=== PATIENT | male | born 1990 | race Caucasian/White ===

== ENCOUNTER 2020-08-24 18:03 | Emergency (ER) | payer SELFPAY ==
[2020-08-24 18:07] VITALS: BP 165/105; PULSE 95; RESP 18; TEMP 36.4; O2SAT 100; BMI 33.3
--- NOTE | 2020-08-24 18:11 | ECG_ITS ---
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
--- NOTE | 2020-08-24 18:11 | XR_ITS ---
WS: [id number] Portable AP upright chest, 08/24/2020 Clinical Data: cp Comparison: Portable chest, 12/29/2017. Findings: No nodules, masses or effusions are seen. The heart is normal. The pulmonary vascularity is not increased. No pneumonia or pneumothorax is seen. Monitor leads are on the chest wall. XR/XR chest 1V portable [id number] Impression: Negative chest.
--- NOTE | 2020-08-24 18:12 | ED_ITS ---
HPI - Chest Pain General: Chief Complaint: Chest Pain Stated Complaint: Chest Pain Time Seen by Provider: 08/24/20 18:07 Source: patient Mode of arrival: ambulatory Limitations: no limitations History of Present Illness: HPI narrative: 30-year-old male who states that he has been having intermittent palpitations for weeks. He states he drank 2-3 energy drinks today and started having palpitations and was reading online and is concerned that he was in atrial fib. He states he has had a burning pain in the center of his chest as well. He denies any worsening or improving factors. He denies any vomiting. He has had some slight shortness of breath. Denies any cough. MD complaint: chest pain Onset (ago): day(s) Associated symptoms: Deny abdominal pain, dyspnea, fever(s), nausea or vomiting Review of Systems 2 Const: Denies: fever(s), chills, body aches or change in appetite Eyes: Denies: blurry vision or eye discomfort ENMT: Denies: throat pain or dental pain Card: Reports: chest pain Resp: Denies: dyspnea GI: Denies: abdominal pain, nausea, vomiting or diarrhea : Denies: dysuria Musc: Denies: neck pain or back pain Skin/Breast: Denies: rash Neuro: Denies: headache(s) Psych: Denies: depression Bernabe/Lymph: Denies: easy bruising All/Imm: Denies: urticaria Physical Exam Const: COMMON NORMALS: no acute distress, patient oriented x3 and healthy appearing HENMT: COMMON NORMALS: normocephalic and atraumatic HEAD & SCALP: normocephalic and atraumatic Eye: COMMON NORMALS: Equal, round and reactive pupils present and EOMs intact bilaterally PUPIL: Yes Equal, round and reactive pupils present Neck/C-Spine: COMMON NORMALS: full ROM and supple Chest: COMMONS NORMALS: normal inspection of the chest and normal palpation of entire chest wall Resp: COMMON NORMALS: normal respiratory effort, No retractions, No use of accessory muscles and clear to auscultation bilaterally AUSCULTATION: clear to auscultation bilaterally Cardio: COMMON NORMALS: regular rate, regular rhythm and No murmurs present (Cardio) RATE: regular rate RHYTHM: regular rhythm GI: COMMON NORMALS: Normal to inspection, nondistended, normoactive bowel sounds present, Soft to palpation, non-tender and no masses PALPATION: Yes Soft to palpation Extremity: COMMON NORMALS: normal to inspection and full ROM Neuro: COMMON NORMALS: patient oriented x3, moves all extremities and no focal motor deficits Psych: COMMON NORMALS: mental status grossly normal, Normal thought process present and cooperative THOUGHT PROCESS: Normal thought process present Skin: COMMON NORMALS: no rashes or lesions noted and no wounds GENERAL SKIN EXAM: no rashes or lesions noted Course Vital Signs: Vital signs: Vital Signs Temperature 97.6 F 08/24/20 18:07 Pulse Rate 102 H 08/24/20 20:47 Respiratory Rate 16 08/24/20 20:47 Blood Pressure 142/92 08/24/20 20:47 Pulse Oximetry 99 08/24/20 20:47 MDM - Chest Pain MDM Narrative: Medical decision making narrative: Nicholas presents with chest pain palpitations atypical in nature. His palpitations likely due to energy drinks. He is young and healthy and troponin and EKG and D-dimer all negative. He has no signs of major cardiac cause. He is stable for discharge and is to follow-up his PCP and return if worsening. Lab Data: Labs: Lab Results 08/24/20 08/24/20 08/24/20 Range/Units 19:10 19:10 19:10 WBC 10.8 H (4.0-10.0) 10^3/ uL RBC 4.13 (4.1-5.3) 10^6/u L Hgb 13.7 (11.7-16.6) g/dL Hct 40.0 L (42.0-52.0) % MCV 96.9 H (80-94) fL MCH 33.2 (28.0-34.0) pg MCHC 34.3 (30.0-36.0) g/dL RDW 13.1 (12.1-15.1) % Plt Count 178 (130-400) 10^3/c mm MPV 10.6 H (7.4-10.4) fL Neut % (Auto) 74.6 % Lymph % (Auto) 17.3 % Dukes % (Auto) 5.4 % Eos % (Auto) 2.0 % Baso % (Auto) 0.4 % Neut # (Auto) 8.04 H (1.8-7.7) 10^3/u L Lymph # (Auto) 1.9 (0.8-4.8) 10^3/u L [place]ukes # (Auto) 0.6 (0.2-0.9) 10^3/u L Eos # (Auto) 0.2 (0.0-0.8) 10^3/u L Baso # (Auto) 0.0 (0.0-0.1) 10^3/u L Nucleated RBC % (a uto) 0 % Nucleated RBCs # 0.0 /100WBC D-Dimer <= 0.27 (0-0.59) ug/mIFE U Sodium 140 (136-145) mmol/L Potassium 4.0 (3.5-5.1) mmol/L Chloride 105 (98-107) mmol/L Carbon Dioxide 27 (22-29) mmol/L Anion Gap 12.0 (5-19) BUN 9 (6-20) mg/dL Creatinine 0.8 (0.7-1.2) mg/dL GFR Calculation 112.8 (90-130) mL/min Glucose 88 (65-115) mg/dL Calculated Osmolal ity 288 (285-295) mOsm/k g Calcium 9.1 (8.5-10.5) mg/dL Total Bilirubin 0.9 (0.15-1.2) mg/dL AST 26 (0-40) U/L ALT 48 H (0-41) U/L Alkaline Phosphata se 97 (40-130) IU/L Troponin T Baselin e (0-15) ng/L Total Protein 7.0 (6.6-8.7) g/dL Albumin 4.3 (3.5-5.2) g/dL Globulin 2.7 (1.3-4.6) g/dL 08/24/20 Range/Units 19:10 WBC (4.0-10.0) 10^3/ uL RBC (4.1-5.3) 10^6/u L Hgb (11.7-16.6) g/dL Hct (42.0-52.0) % MCV (80-94) fL MCH (28.0-34.0) pg MCHC (30.0-36.0) g/dL RDW (12.1-15.1) % Plt Count (130-400) 10^3/c mm MPV (7.4-10.4) fL Neut % (Auto) % Lymph % (Auto) % Dukes % (Auto) % Eos % (Auto) % Baso % (Auto) % Neut # (Auto) (1.8-7.7) 10^3/u L Lymph # (Auto) (0.8-4.8) 10^3/u L Dukes # (Auto) (0.2-0.9) 10^3/u L Eos # (Auto) (0.0-0.8) 10^3/u L Baso # (Auto) (0.0-0.1) 10^3/u L Nucleated RBC % (a uto) % Nucleated RBCs # /100WBC D-Dimer (0-0.59) ug/mIFE U Sodium (136-145) mmol/L Potassium (3.5-5.1) mmol/L Chloride (98-107) mmol/L Carbon Dioxide (22-29) mmol/L Anion Gap (5-19) BUN (6-20) mg/dL Creatinine (0.7-1.2) mg/dL GFR Calculation (90-130) mL/min Glucose (65-115) mg/dL Calculated Osmolal ity (285-295) mOsm/k g Calcium (8.5-10.5) mg/dL Total Bilirubin (0.15-1.2) mg/dL AST (0-40) U/L ALT (0-41) U/L Alkaline Phosphata se (40-130) IU/L Troponin T Baselin e 6 (0-15) ng/L Total Protein (6.6-8.7) g/dL Albumin (3.5-5.2) g/dL Globulin (1.3-4.6) g/dL Imaging Data^: CXR: Attestation: I personally reviewed and interpreted this imaging study as follows: My impression: no acute abnormality EKG Data^: EKG 1: Attestation: I personally reviewed and interpreted this EKG as follows: EKG interpretation date: 08/24/20 EKG interpretation time: 18:12 Interpretation: nsr hr [address] or t wave abnormalities qrs 89 qtc 401 EKG 2: Attestation: I personally reviewed and interpreted this EKG as follows: EKG interpretation date: 08/24/20 EKG interpretation time: 20:15 Interpretation: nsr hr [address] or t wave abnormalities qrs 85 qtc 413 Discharge Plan Discharge Patient Disposition: Home Clinical Impression: Palpitations, Chest pain Condition: Stable Prescriptions: No Action iron 325 mg (65 mg iron) Tablet 325 mg PO DAILY RF: 0 Fish Oil 1 cap PO DAILY RF: 0 Otc Metabolism Health 1 cap PO DAILY RF: 0 Otc Mood Stabilizer 1 cap PO DAILY RF: 0 multivitamin Tablet 1 tab PO DAILY RF: 0 Discharge Orders: Discharge ED (Routine); Ordered 08/24/20 Ordered By: Chadd Reyes Referrals: DARIO Jade, CHILD PROTECTIVE SERVICES SPECIALIST [Primary Care Provider] - 1-3 days Discharge Diet: Advance as tolerated Discharge Activity: Resume usual activity Patient Instructions: Chest Pain (ED), Palpitations (ED) Coding Level of Care Code ED Health Safety And Environment Manager for Chg Fwd Exam Comprehensive
[2020-08-24] MEDS: LORazepam 2 mg/mL INJ 1 mL 1 MG IVP (19:04)
[2020-08-24 19:14] LABS: Basophils % 0.4 %; Eosinophils # 0.2 10^3/uL (0.0-0.8); Hemoglobin 13.7 g/dL (11.7-16.6); Lymphocytes # 1.9 10^3/uL (0.8-4.8); Lymphocytes % 17.3 %; Mean Corpuscular HGB Conc 34.3 g/dL (30.0-36.0); Mean Corpuscular Hemoglobin 33.2 pg (28.0-34.0); Mean Corpuscular Volume 96.9 fL (80-94); Mean Platelet Volume 10.6 fL (7.4-10.4); Monocytes # 0.6 10^3/uL (0.2-0.9); Monocytes % 5.4 %; Neutrophils # 8.04 10^3/uL (1.8-7.7); Neutrophils % 74.6 %; Nucleated Red Blood Cells % 0 %; Platelet Count 178 10^3/cmm (130-400); Red Blood Count 4.13 10^6/uL (4.1-5.3); Red Cell Distribution Width 13.1 % (12.1-15.1); White Blood Count 10.8 10^3/uL (4.0-10.0)
[2020-08-24 19:39] LABS: Alanine Aminotransferase 48 U/L (0-41); Albumin Level 4.3 g/dL (3.5-5.2); Alkaline Phosphatase 97 IU/L (40-130); Aspartate Amino Transferase 26 U/L (0-40); Blood Urea Nitrogen 9 mg/dL (6-20); Calcium 9.1 mg/dL (8.5-10.5); Carbon Dioxide 27 mmol/L (22-29); Chloride 105 mmol/L (98-107); Globulin 2.7 g/dL (1.3-4.6); Glomerular Filtration Rate 112.8 mL/min (90-130); Glucose 88 mg/dL (65-115); Osmolality Calculated 288 mOsm/kg (285-295); Sodium 140 mmol/L (136-145); Total Bilirubin 0.9 mg/dL (0.15-1.2)
[2020-08-24 19:40] VITALS: BP 133/98; PULSE 100; RESP 16; O2SAT 98
[2020-08-24 19:40] LABS: Troponin(5th) Baseline 6 ng/L (0-15)
--- NOTE | 2020-08-24 20:11 | ECG_ITS ---
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
[2020-08-24] MEDS: sodium chloride 0.9% 1,000 ML 999 ML IV (20:23)
[2020-08-24] MEDS: ketorolac 30 mg/mL INJ IVP (20:23)
[2020-08-24 20:47] VITALS: BP 142/92; PULSE 102; RESP 16; O2SAT 99
[2020-08-24 20:56] LABS: D Dimer <= 0.27 ug/mIFEU (0-0.59)
== END 2020-08-24 21:11 | disposition home or self-care (01) ==
PROVIDERS: Emergency Provider Emergency Medicine; PCP Nurse Practitioner Family
DX: R07.9 Chest pain, unspecified (principal); R00.2 Palpitations
CPT/HCPCS: 71045; 80053; 84484; 85025; 85378; 93005; 96361; 96374; 96375; 99284; J1885; J2060; J7030

== ENCOUNTER 2024-12-14 09:49 | Inpatient (IN) | payer SELFPAY ==
[2024-12-14] VITALS (83 sets, daily range): BP systolic 100–176; BP diastolic 58–130; PULSE 103–131; RESP 12–30; TEMP 36.5–36.8; O2SAT 89–100
--- NOTE | 2024-12-14 09:50 | XRR_ITS ---
PROCEDURE INFORMATION: Exam: XR Chest Exam date and time: 12/14/2024 10:30 AM Age: 34 years old Clinical indication: Pain; Angina pectoris; Additional info: Chest pain TECHNIQUE: Imaging protocol: Radiologic exam of the chest. Views: 1 view. COMPARISON: CR XR chest 1V portable [id number] 08/24/2020 6:33 PM FINDINGS: Lungs: Unremarkable. No consolidation. Pleural spaces: Unremarkable. No pleural effusion. No pneumothorax. Heart/Mediastinum: Unremarkable. No cardiomegaly. Bones/joints: Unremarkable. XR/XR chest 1V portable [id number] IMPRESSION: No acute findings.
--- NOTE | 2024-12-14 09:50 | ECG_ITS ---
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 Measurements Intervals [place] Rate: 132 P: 68 RI: 131 QRS: 58 QRSD: 81 T: 58 QT: 315 QTc: 467 Interpretive Statements SINUS TACHYCARDIA NONSPECIFIC T-WAVE ABNORMALITY Compared to ECG 08/24/2020 20:15:27 T-wave abnormality now present Sinus rhythm no longer present Electronically Signed On 12-16-2024 09:33:41 CDT by Rico Petit M.D. [id number]
--- NOTE | 2024-12-14 10:08 | ED_ITS ---
HPI - Chest Pain 2 General: Chief Complaint: Chest Pain Stated Complaint: SOb, chest pain, tingling in fingers and toes Time Seen by Provider: 12/14/24 09:50 Source: patient Mode of arrival: ambulatory Limitations: no limitations History of Present Illness: Patient is a 34-year-old male presents to ED today for a complaint of dizziness worse upon standing and shortness of breath. Patient states symptoms have been present over the past several weeks but have significantly worsened over the past few days. He has had intermittent episodes of chest pain. Patient states he does smoke and drink alcohol daily. Reports approximately 3 alcoholic drinks nightly-sometimes more. 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 He arrives tachycardic in the 130s. MD complaint: chest pain and other (sob, dizziness) Onset (ago): week(s) Timing of current episode: episodic Pain location: substernal Relieving factors: rest Exacerbating factors: other (standing, walking) Associated symptoms: Reports no associated symptoms and dyspnea; Deny abdominal pain, fever(s), nausea, palpitations, syncope or vomiting Treatment prior to arrival: none Risk Factors: Coronary artery disease risk factors: smoking history Thoracic aortic dissection risk factors: none Related Data Home Medications ?Medication ?Instructions ?Recorded ?Confirmed No Known Home Medications 12/14/2407/10 Allergies Allergy/AdvReac Type Severity Reaction Status Date / Time No Known Allergies Allergy Verified 10/12/20 11:25 Review of Systems 2 Const: Denies: fever(s), chills, body aches, fatigue or malaise Eyes: Denies: change in vision or blurry vision Card: Reports: chest pain, lightheadedness and dyspnea on exertion; Denies: palpitations, irregular heart rhythm, edema, swelling of feet/ankles, syncope, pre-syncope, orthopnea, leg pain with exertion or acrocyanosis Resp: Reports: dyspnea; Denies: productive cough, pain on inspiration or chest congestion GI: Denies: abdominal pain, nausea, vomiting, heartburn or diarrhea : Denies: flank pain, difficulty urinating, dysuria, urinary frequency or urinary urgency Musc: Denies: neck pain, back pain, extremity pain, extremity swelling, joint pain, joint swelling or joint redness Skin/Breast: Denies: rash Neuro: Reports: dizziness; Denies: headache(s), numbness in extremities, weakness in extremities, sensory changes, confusion, behavioral changes, Slurred speech present, difficulty communicating thoughts or seizure-like activity PFSH ED 2 PFSH: Social History Smoking and tobacco/nicotine status: current every day tobacco/nicotine user cigarettes Packs smoked per day: 1 Years cigarettes smoked: 12 Quit status (tobacco/nicotine): has tried quititng Number of times tried to quit tobacco: 3 Second hand smoke exposure: No Physical Exam 2 Const: COMMON NORMALS: no acute distress, patient oriented x3, no limitations and alert GENERAL APPEARANCE: cooperative ORIENTATION/CONSCIOUSNESS: Yes awake, Yes oriented to person, Yes oriented to place and Yes oriented to time OTHER: pale appearing HENMT: COMMON NORMALS: normocephalic and atraumatic HEAD & SCALP: normal to inspection, normocephalic and atraumatic Neck/C-Spine: COMMON NORMALS: no lymphadenopathy GENERAL: Yes normal visual inspection Resp: COMMON NORMALS: normal respiratory effort and clear to auscultation bilaterally AUSCULTATION: clear to auscultation bilaterally Cardio: COMMON NORMALS: regular rhythm RATE: tachycardic RHYTHM: regular rhythm GI: COMMON NORMALS: Normal to inspection, nondistended, normoactive bowel sounds present, Soft to palpation, non-tender, No hepatosplenomegaly present and no masses PALPATION: Yes Soft to palpation and Yes No hepatosplenomegaly present RECTAL EXAM: Yes heme negative stool (probably not enough sample for adequate testing) : COMMON NORMALS: Yes no CVA tenderness BLADDER/KIDNEY EXAM: Yes no CVA tenderness Back/Pelvis: COMMON NORMALS: no CVA tenderness, thoracic and lumbar spine normal to inspection and no thoracic nor lumbar tenderness Extremity: COMMON NORMALS: no clubbing, cyanosis or edema, no calf tenderness and no pedal edema GENERAL: Yes normal exam except as noted Neuro: COMMON NORMALS: patient oriented x3, moves all extremities, no focal motor deficits and no sensory deficits noted SENSORIUM/ORIENTATION: Yes alert, Yes oriented to person, Yes oriented to place and Yes oriented to time Skin: NARRATIVE SKIN EXAM: pale Course 2 Vital Signs: Vital signs: Vital Signs Temperature 98.1 F 12/14/24 09:57 Pulse Rate 124 H 12/14/24 12:00 Respiratory Rate 17 12/14/24 10:20 Blood Pressure 122/72 12/14/24 12:00 Pulse Oximetry 97 12/14/24 12:00 Oxygen Delivery Me thod Room Air 12/14/24 12:00 MDM - Chest Pain Medical Decision Making Patient is a 34-year-old male here with a chief complaint of dizziness, lightheadedness, shortness of breath, and elevated heart rate. Symptoms progressively worsening over the past several days. Worse with positional changes. He was found to be significantly anemic with a hemoglobin of 6.7. He is a daily heavy alcohol user. He has not noted any episodes of hematemesis or black or tarry stools. Hemoccult here was negative but adequate sample was not obtained. Presumed GI bleed at this time based on his history. CT scan of his chest/abdomen/pelvis showing no esophageal varices. He does have scattered mild lymphadenopathy. Plan will be to admit to hospitalist, Dr. Santos. Dr. Valderrama will consult for EGD/colonoscopy. Will admit to ICU per hospitalist request. Will transfuse 2 units PRBCs as he is tachycardic and symptomatic. Medical Records I reviewed the patient's medical records. Lab Data I reviewed the patient's lab results. 12/14/24 10:15 12/14/24 10:15 Radiology Impressions Chest X-Ray 12/14/24 09:50 IMPRESSION: No acute findings. Chest/Abdomen/Pelvis CT 12/14/24 11:29 IMPRESSION: 1. No esophageal varices identified. 2. Mild left mediastinal lymphadenopathy. 3. No other acute thoracic findings. 4. Additional details as above. IMPRESSION: 1. Mild chun hepatis, periceliac, and right iliac lymphadenopathy. 2. Mild splenomegaly. 3. No other acute abdominal or pelvic findings. 4. Additional details as above. Laboratory Results WBC 6.32 10^3/uL (3.29-11.43) 12/14/24 10:15 RBC 1.65 10^6/uL (3.85-5.65) L 12/14/24 10:15 Hgb 6.70 g/dL (11.27-16.99) L 12/14/24 10:15 Hct 18.6 % (37-53) L* 12/14/24 10:15 MCV 112.7 fl (82-101) H 12/14/24 10:15 MCH 40.6 pg (27-33) H 12/14/24 10:15 MCHC 36.0 g/dL (30-55) 12/14/24 10:15 RDW 15.3 % (12.1-15.1) H 12/14/24 10:15 Plt Count 165 10^3/cmm (157-399) 12/14/24 10:15 MPV 10.0 fL (7.4-10.4) 12/14/24 10:15 Neut % (Auto) 72.3 % 12/14/24 10:15 Lymph % (Auto) 20.1 % 12/14/24 10:15 [place] % (Auto) 3.5 % 12/14/24 10:15 Eos % (Auto) 3.2 % 12/14/24 10:15 Baso % (Auto) 0.3 % 12/14/24 10:15 Neut # (Auto) 4.57 10^3/uL (1.8-7.7) 12/14/24 10:15 Lymph # (Auto) 1.3 10^3/uL (0.8-4.8) 12/14/24 10:15 [place] # (Auto) 0.2 10^3/uL (0.2-0.9) 12/14/24 10:15 Eos # (Auto) 0.2 10^3/uL (0.0-0.8) 12/14/24 10:15 Baso # (Auto) 0.0 10^3/uL (0.0-0.1) 12/14/24 10:15 Nucleated RBC % (auto) 0 % 12/14/24 10:15 Nucleated RBCs # 0.0 /100WBC 12/14/24 10:15 D-Dimer 0.89 ug/mLFEU (0-0.59) H 12/14/24 10:15 Sodium 133 mmol/L (136-145) L 12/14/24 10:15 Potassium 3.7 mmol/L (3.5-5.1) 12/14/24 10:15 Chloride 95 mmol/L (98-107) L 12/14/24 10:15 Carbon Dioxide 25 mmol/L (22-29) 12/14/24 10:15 Anion Gap 16.7 (5-19) 12/14/24 10:15 BUN 7 mg/dL (6-20) 12/14/24 10:15 Creatinine 0.7 mg/dL (0.7-1.2) 12/14/24 10:15 GFR Calculation 128.3 mL/min (90-130) 12/14/24 10:15 Glucose 109 mg/dL (65-115) 12/14/24 10:15 Calculated Osmolality 275 mOsm/kg (285-295) L 12/14/24 10:15 Lactic Acid 2.6 mmol/L (0.5-2.2) H 12/14/24 10:15 Calcium 9.0 mg/dL (8.5-10.5) 12/14/24 10:15 Total Bilirubin 3.0 mg/dL (0.15-1.2) H 12/14/24 10:15 AST 40 U/L (0-40) 12/14/24 10:15 ALT 32 U/L (0-41) 12/14/24 10:15 Alkaline Phosphatase 100 U/L (40-130) 12/14/24 10:15 Troponin T Baseline 7 ng/L (0-15) 12/14/24 10:15 Troponin T 120 Minute < 6.0 ng/L (0-15) 12/14/24 12:07 Delta Troponin T -[id number] ABS# (0-10) L 12/14/24 12:07 NT-Pro-B Natriuret Pep 118 pg/mL (0-125) 12/14/24 10:15 Total Protein 6.7 g/dL (6.6-8.7) 12/14/24 10:15 Albumin 3.7 g/dL (3.5-5.2) 12/14/24 10:15 Globulin 3.0 g/dL (1.3-4.6) 12/14/24 10:15 Blood Type O Negative 12/14/24 11:31 Rho(D) Type Rh negative 12/14/24 11:31 Antibody Screen Negative 12/14/24 11:31 Crossmatch See Detail 12/14/24 11:31 All radiology interpretation(s) finalized by discharge Discharge Plan Discharge Patient Disposition: Admitted As Inpatient Clinical Impression: Anemia, Chronic alcohol abuse, Hyperbilirubinemia Condition: Stable Coding Level of Care Code ED Yarn Finisher for Andrew Moreno
[2024-12-14 10:26] LABS: Hemoglobin 6.70 g/dL (11.27-16.99); Mean Corpuscular HGB Conc 36.0 g/dL (30-55); Mean Corpuscular Hemoglobin 40.6 pg (27-33); Mean Corpuscular Volume 112.7 fl (82-101); Nucleated Red Blood Cells % 0 %; Platelet Count 165 10^3/cmm (157-399); Red Blood Count 1.65 10^6/uL (3.85-5.65); White Blood Count 6.32 10^3/uL (3.29-11.43)
[2024-12-14 10:41] LABS: Hematocrit 18.6 % (37-53)
[2024-12-14 10:47] LABS: Lactic Sepsis W/Reflex 2.6 mmol/L (0.5-2.2)
[2024-12-14 10:50] LABS: Troponin(5th) Baseline 7 ng/L (0-15)
[2024-12-14 10:57] LABS: Alanine Aminotransferase 32 U/L (0-41); Albumin Level 3.7 g/dL (3.5-5.2); Alkaline Phosphatase 100 U/L (40-130); Anion Gap 16.7 (5-19); Aspartate Amino Transferase 40 U/L (0-40); Blood Urea Nitrogen 7 mg/dL (6-20); Calcium 9.0 mg/dL (8.5-10.5); Carbon Dioxide 25 mmol/L (22-29); Chloride 95 mmol/L (98-107); Creatinine Clr Calc Pharmacy 199.0583; Globulin 3.0 g/dL (1.3-4.6); Glucose 109 mg/dL (65-115); NT Pro B Type Natriuretic Pept 118 pg/mL (0-125); Osmolality Calculated 275 mOsm/kg (285-295); Potassium 3.7 mmol/L (3.5-5.1); Sodium 133 mmol/L (136-145); Total Protein 6.7 g/dL (6.6-8.7)
--- NOTE | 2024-12-14 11:29 | CTR_ITS ---
PROCEDURE INFORMATION: Exam: CT Chest With Contrast; Diagnostic Exam date and time: 12/14/2024 11:39 AM Age: 34 years old Clinical indication: Other: Anemia; Shortness of breath; Additional info: Anemia, gen surg wants eval for esophageal varices TECHNIQUE: Imaging protocol: Diagnostic computed tomography of the chest with contrast. Radiation optimization: All CT scans at this facility use at least one of these dose optimization techniques: automated exposure control; mA and/or kV adjustment per patient size (includes targeted exams where dose is matched to clinical indication); or iterative reconstruction. Contrast material: OMNI 350; Contrast volume: 100 ml; Contrast route: INTRAVENOUS (IV); COMPARISON: CR XR chest 1V portable [id number] 12/14/2024 10:30 AM RADIATION DOSE METRICS: Total DLP (mGy-cm): 1579.48 FINDINGS: Lungs: Unremarkable. No consolidation. No masses. Pleural spaces: Unremarkable. No pneumothorax. No pleural effusion. Heart: Unremarkable. No cardiomegaly. No pericardial effusion. Coronary arteries: No calcification in the visualized coronary arteries. Lymph nodes: Mild left mediastinal lymphadenopathy. No other thoracic lymphadenopathy. 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 No esophageal varices identified. Otherwise, unremarkable thoracic systemic and pulmonary vasculature. Bones/joints: Unremarkable. No acute fracture. Soft tissues: Unremarkable visualized chest wall. Otherwise, unremarkable soft tissues. PROCEDURE INFORMATION: Exam: CT Abdomen And Pelvis With Contrast Exam date and time: 12/14/2024 11:39 AM Age: 34 years old Clinical indication: Other: Anemia; Shortness of breath; Additional info: Anemia, gen surg wants eval for esophageal varices TECHNIQUE: Imaging protocol: Computed tomography of the abdomen and pelvis with contrast. Radiation optimization: All CT scans at this facility use at least one of these dose optimization techniques: automated exposure control; mA and/or kV adjustment per patient size (includes targeted exams where dose is matched to clinical indication); or iterative reconstruction. Contrast material: OMNI 350; Contrast volume: 100 ml; Contrast route: INTRAVENOUS (IV); COMPARISON: CR XR chest 1V portable [id number] 12/14/2024 10:30 AM RADIATION DOSE METRICS: Total DLP (mGy-cm): 1579.48 FINDINGS: Lungs: Lung bases are clear as visualized. Liver: Normal. No mass. Gallbladder and biliary ducts: Normal. No calcified stones. No ductal dilation. Pancreas: Normal. No ductal dilation. Spleen: Mild splenomegaly. Otherwise, unremarkable spleen. Adrenal glands: Normal. No mass. Kidneys and ureters: Normal. No hydronephrosis. Stomach and bowel: Diverticula from the colon. No diverticulitis. Otherwise, unremarkable. Appendix: No evidence of appendicitis. Intraperitoneal space: Unremarkable. No free air. No significant fluid collection. Vasculature: Unremarkable. No abdominal aortic aneurysm. Lymph nodes: Mild chun hepatis, periceliac, and right iliac lymphadenopathy. No other abdominal or pelvic lymphadenopathy. Urinary bladder: Unremarkable. Reproductive: Unremarkable. Bones/joints: Mild L2-L3 degenerative disc disease. Fixation hardware in the proximal right femur. Otherwise, unremarkable. Soft tissues: Unremarkable visualized body wall. Otherwise, unremarkable soft tissues. CT/CT chest abdpel w/*[id number] IMPRESSION: 1. No esophageal varices identified. 2. Mild left mediastinal lymphadenopathy. 3. No other acute thoracic findings. 4. Additional details as above. IMPRESSION: 1. Mild chun hepatis, periceliac, and right iliac lymphadenopathy. 2. Mild splenomegaly. 3. No other acute abdominal or pelvic findings. 4. Additional details as above.
[2024-12-14] MEDS: iohexol 350 mg/mL 500 mL Btl (per mL) IV (11:43)
[2024-12-14 12:07] LABS: Reflex Lactate Order REFLEX LACTIC ORDERD
--- NOTE | 2024-12-14 12:15 | ECG_ITS ---
[facility] Date: 2024[facility]14 Pat Name: Nicholas Patrick Department: Room: [facility] Gender: Male Supervisor Rolling Room: : 1990 Requested By: Reyna Schultz Order Number: [id number] Victor MD: Rico Petit M.D. Measurements Intervals [place] Rate: 125 P: 62 [place]: 136 QRS: 37 QRSD: 85 T: 41 QT: 312 QTc: 450 Interpretive Statements SINUS TACHYCARDIA Compared to ECG 12/14/2024 10:00:17 T-wave abnormality no longer present Electronically Signed On 12-16-2024 09:33:33 CDT by Rico Petit M.D. [id number] [id number]
[2024-12-14 12:37] LABS: Troponin 5 2HR < 6.0 ng/L (0-15)
[2024-12-14 12:39] LABS: Troponin 5 2HR Delta -1.00001 ABS# (0-10)
[2024-12-14 13:32] LABS: Glucose Urine UA Negative (Normal); Nitrate Urine Negative (Negative); Specific Gravity, Urine 1.026 (1.005-1.030)
[2024-12-14 13:37] LABS: Add Urine Microscopic? YES
[2024-12-14 13:38] LABS: PCP Screen Urine Negative (Negative)
--- NOTE | 2024-12-14 13:45 | P.CONIM_ITS ---
Providers/Reason For Consult 2 Consulting Physician/Specialty*: General Surgery Reason for Consult*: Suspected GI bleeding Attending Physician: Brendon Santos MD History of Present Illness History of Present Illness Nicholas Patrick is a 34 year old male with history of alcohol abuse who presents to the hospital with dizziness tachycardia and was noted to have a hemoglobin of 6.7. Denies abdominal pain blood in the stool nausea vomiting there are hematemesis. Has not seen any dark-colored stools. Hemoccult was negative in the ER. Due to his significantly low hemoglobin I was consulted for possible evaluation probably GI bleeding Review of Systems 2 General: Reports: 10 or more systems reviewed and unremarkable except in HPI and below Medications/Allergies Home Medications ?Medication ?Instructions ?Recorded ?Confirmed ?Last Taken ?Type No Known Home Medications 12/14/2407/10 Unknown History Allergies Allergy/AdvReac Type Severity Reaction Status Date / Time No Known Allergies Allergy Verified 10/12/20 11:25 PFSH Acute 2 PFSH: Social History Smoking and tobacco/nicotine status: current every day tobacco/nicotine user cigarettes Packs smoked per day: 1 Years cigarettes smoked: 12 Quit status (tobacco/nicotine): has tried quititng Number of times tried to quit tobacco: 3 Second hand smoke exposure: No Vitals/I&O/Wt Last Vital Signs Temp 98.2 F 12/14/24 13:19 Pulse 115 H 12/14/24 13:34 Resp 18 12/14/24 13:19 BP 124/66 12/14/24 13:34 Pulse Ox 99 12/14/24 13:34 O2 Del Method Room Air 12/14/24 12:00 12/13/24 12/14/24 12/14/24 22:59 06:59 14:59 Intake Total 0 / 0 Balance 0 / 0 Weight last 48 hrs Weight 270 lb Physical Exam 2 GI: OTHER: Abdomen is soft nontender nondistended. Data 12/14/24 10:15 12/14/24 10:15 A&P Assessment and plan (1) Hyperbilirubinemia: (2) Chronic alcohol abuse: (3) Anemia: Plan Patient who presents with acute anemia, I was consulted for evaluation for possible endoscopy due to the suspicion of possible GI bleeding. Patient has not had any symptoms of GI bleeding no abdominal pain no blood in the stool. Due to the significant drop in the hemoglobin I agreed to proceed with upper endoscopy for endoluminal evaluation. I do not think colonoscopy is indicated at this time as likelihood of lower GI bleeding in this case is very low. I will recommend that we start her medical management with IV fluids and resuscitation as well as transfusion as needed and we plan to proceed to the endoscopy suite tomorrow morning. I will discuss all risk and benefits with the patient including the risk of bleeding, perforation injury to soft tissue in the mouth and pharynx and need for additional procedures. Patient shows understanding agrees to undergo upper endoscopy. In the interim we will can start him on a high-dose PPI. General surgery will continue to follow PDMP PDMP Reviewed: Not Reviewed Coding Level of Care Code Acute Code for Chg Fwd Diagnoses Hyperbilirubinemia E80.6 Chronic alcohol abuse F10.10 Anemia D64.9 Anemia type: unspecified type
--- NOTE | 2024-12-14 13:50 | PC.NURSE ---
Arrived from ED, AO x4 blood running
--- NOTE | 2024-12-14 13:56 | P.HP_ITS ---
Providers/Chief Complaint 2 Admitting Physician: Brendon Santos MD Chief Complaint: SOb, chest pain, tingling in fingers and toes History of Present Illness Nicholas Patrick is a 34 year old male with a past medical history of smoking, history of alcoholism, who presents to [facility] due to weakness, fatigue, dizziness, shortness of breath over the last few weeks. Patient reports that he about 30 weeks ago fell and had rib pain, for which she used ibuprofen for about a week or so. He does report a history of alcoholism, 3 drinks 3 alcoholic drinks in a 24-hour period. He tells me over the last 2 weeks, he has been progressively increasing short of breath, dizzy, lightheaded, has had generalized weakness, denies any bloody black stools, denies any personal or family history of bleeding or anemia Review of Systems 2 Card: Denies: chest pain GI: Denies: abdominal pain Medications/Allergies Home Medications ?Medication ?Instructions ?Recorded ?Confirmed ?Last Taken ?Type No Known Home Medications 12/14/24 0707/10 Unknown History Allergies Allergy/AdvReac Type Severity Reaction Status Date / Time No Known Allergies Allergy Verified 10/12/20 11:25 PFSH Acute 2 PFSH: Social History Smoking and tobacco/nicotine status: current every day tobacco/nicotine user cigarettes Packs smoked per day: 1 Years cigarettes smoked: 12 Quit status (tobacco/nicotine): has tried quititng Number of times tried to quit tobacco: 3 Second hand smoke exposure: No Vitals/I&O/Wt Last Vital Signs Temp 98.2 F 12/14/24 13:19 Pulse 115 H 12/14/24 13:34 Resp 18 12/14/24 13:19 BP 124/66 12/14/24 13:34 Pulse Ox 99 12/14/24 13:34 O2 Del Method Room Air 12/14/24 12:00 12/13/24 12/14/24 12/14/24 22:59 06:59 14:59 Intake Total 0 / 0 Balance 0 / 0 Weight last 48 hrs Weight 122.47 kg Physical Exam 2 Const: COMMON NORMALS: no acute distress and patient oriented x3 Eye: COMMON NORMALS: Equal, round and reactive pupils present and EOMs intact bilaterally Resp: COMMON NORMALS: normal respiratory effort, No retractions, No use of accessory muscles and clear to auscultation bilaterally AUSCULTATION: clear to auscultation bilaterally Cardio: COMMON NORMALS: no JVD, regular rate, regular rhythm, S1 normal heart sound present and S2 normal heart sound present RATE: tachycardic RHYTHM: regular rhythm HEART SOUNDS: S1 normal heart sound present and S2 normal heart sound present GI: COMMON NORMALS: Normal to inspection, nondistended, normoactive bowel sounds present, Soft to palpation and non-tender Extremity: COMMON NORMALS: no pedal edema Neuro: COMMON NORMALS: patient oriented x3, CN's II-XII intact bilaterally and moves all extremities Psych: COMMON NORMALS: mental status grossly normal Data 12/14/24 10:15 12/14/24 10:15 A&P Assessment and plan (1) Hyperbilirubinemia: (2) Acute anemia: (3) Chronic alcohol abuse: Plan Acute anemia - Concerns for slow GI bleed - CTA abdomen pelvis no acute findings - Reticulocyte, ferritin, iron, B12, folate, peripheral smear - Hemolytic labs - Liver function studies, - Will transfuse to 2 units PRBC - Gentle IV hydration - Protonix, Carafate -General Surgery consulted for EGD - Full code - S CDs for DVT prophylaxis PDMP PDMP Reviewed: Not Reviewed Attestations 2 Medical Necessity Statement*: Patient requires hospitalization, inpatient, greater than 2 midnights for acute anemia, hyperbilirubinemia Diagnoses Hyperbilirubinemia E80.6 Acute anemia D64.9 Chronic alcohol abuse F10.10
[2024-12-14 14:05] LABS: LAB Peripheral Smear Sent for Review
[2024-12-14 14:06] LABS: INR 1.02 (0.8-1.2); Prothrombin Time 14.10 SECONDS (12.1-14.9)
[2024-12-14 15:03] LABS: Cholesterol 121 mg/dL (0-200); Ferritin 543 ng/mL (30-400); HDL Cholesterol 21 mg/dL (60-100); Iron 285 ug/dL (59-158); Lipase 24 U/L (13-60); Thyroid Stimulating Hormone 2.21 uIU/mL (0.27-4.20); Triglycerides 114 mg/dL (0-150); Vitamin B12 562 pg/mL (232-1245)
[2024-12-14] MEDS: sucralfate 1 gm/10 mL Oral Liq UDC PO ×2 (15:13→19:54)
[2024-12-14] MEDS: pantoprazole 40 mg SDV IVP (15:13)
[2024-12-14 15:20] LABS: Total Iron Binding Capacity 288.99999 mcg/dl; Unsaturated Iron Binding < 4 ug/dL (112-347)
[2024-12-14] MEDS: thiamine 100 mg/mL 2mL SDV IM (15:46)
[2024-12-14] MEDS: folic acid 1 MG, multivitamin inj 10 ML, thiamine 100 MG in sodium chloride 0.9% 1,000 ML 252.8 MG IV (15:47)
--- NOTE | 2024-12-14 15:56 | ECG_ITS ---
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 Measurements Intervals [place] Rate: 114 P: 64 NE: 152 QRS: 32 QRSD: 78 T: 48 QT: 337 QTc: 465 Interpretive Statements SINUS TACHYCARDIA NONSPECIFIC T-WAVE ABNORMALITY Compared to ECG 12/14/2024 10:26:11 T-wave abnormality now present Electronically Signed On 12-16-2024 09:31:44 CDT by Rico Petit M.D. [id number] [id number]
[2024-12-14 16:22] LABS: Transferrin 244 mg/dL (200-360)
--- NOTE | 2024-12-14 17:34 | P.TS_ITS ---
Transfer Summary Providers Date of Admission: 12/14/24 13:01 Date of Discharge/Transfer: 12/19/24 Attending Provider at Admission: Brendon Santos MD Attending Provider at Transfer: Brendon Santos MD Transfer Plans: Anticipated date of transfer: 12/19/24 . Diagnoses at Discharge Discharge Diagnosis (1) Hyperbilirubinemia: Status: Acute (2) Acute anemia: Status: Acute (3) Chronic alcohol abuse: Status: Acute Reason for Visit Reason for Visit SOb, chest pain, tingling in fingers and toes Hospital Course Hospital Course Nicholas Patrick is a 34 year old male with a past medical history of smoking, history of alcoholism, who presents to [facility] due to weakness, fatigue, dizziness, shortness of breath over the last few weeks. Patient reports that he about 30 weeks ago fell and had rib pain, for which she used ibuprofen for about a week or so. He does report a history of alcoholism, 3 drinks 3 alcoholic drinks in a 24-hour period. He tells me over the last 2 weeks, he has been progressively increasing short of breath, dizzy, lightheaded, has had generalized weakness, denies any bloody black stools, denies any personal or family history of bleeding or anemia Patient was admitted to [facility] for acute anemia, multifactorial - Concerns for megaloblastic anemia, with folic acid deficiency with alcoholism -Continue folic acid -Advised against alcohol consumption -With evidence of hemolytic anemia, haptoglobin 10, LDH over 800, -With evidence of aplastic anemia reticulocyte count 2 -Recommend transfer to tertiary level center for inpatient oncology evaluation, bone marrow biopsy - CTA abdomen pelvis shows mild left mediastinal lymphadenopathy, mild chun hepatis, periceliac and right iliac lymphadenopathy, mild splenomegaly, with above findings concerning for acute leukemia -Does have hyperbilirubinemia, splenomegaly could be hypersplenism - Creatinine stable at 0.7 - Status post 3 units PRBC hemoglobin 7.6 -Now developing thrombocytopenia platelet count 138 -Bilirubin 2.5 - Gentle IV hydration - Protonix, Carafate - No evidence of iron deficiency, GI bleed EGD canceled - Patient was transferred to [facility] for the need for inpatient hematology evaluation and bone marrow biopsy Physical Exam Narrative: Patient was transferred 12/15/2024 at 2215, before he was seen TS Data Studies Completed and Pending Pending at discharge Category Date Time Status Alcohol Level Routine Lab 12/14/24 12:07 Results Bilirubin, Total & Direct Routine Lab 12/14/24 12:07 Results Blood Culture Stat Lab 12/14/24 10:15 Ordered Ceruloplasmin Stat Lab 12/14/24 15:31 Ordered Complete Blood Count w/Auto AM LABS Lab 12/15/24 04:00 Ordered Complete Blood Count w/Auto AM LABS Lab 12/16/24 04:00 Ordered Complete Blood Count w/Auto AM LABS Lab 12/17/24 04:00 Ordered Comprehensive Metabolic Panel AM LABS Lab 12/15/24 04:00 Ordered Comprehensive Metabolic Panel AM LABS Lab 12/16/24 04:00 Ordered Comprehensive Metabolic Panel AM LABS Lab 12/17/24 04:00 Ordered Copper Level Stat Lab 12/14/24 15:31 Ordered DIC Profile Routine Lab 12/14/24 15:40 Ordered Direct Stan Routine Lab 12/14/24 10:15 Received Drug Screen, Urine Routine Lab 12/14/24 15:30 Uncollected EBV IGG & IGM Stat Lab 12/14/24 15:25 Ordered HEP ACUTE [Hepatitis Acute Panel] Routine Lab 12/14/24 15:30 Ordered HIV 1&2 Antigen & Antibody Routine Lab 12/14/24 15:30 Ordered Hemoglobin A1C Routine Lab 12/14/24 14:13 Ordered Hemoglobin and Hematocrit Q4H Lab 12/14/24 19:00 Ordered Hemoglobin and Hematocrit Q4H Lab 12/14/24 23:00 Ordered Hemoglobin and Hematocrit Q4H Lab 12/15/24 03:00 Ordered Hemoglobin and Hematocrit Q4H Lab 12/15/24 07:00 Ordered Hemoglobin and Hematocrit Q4H Lab 12/15/24 11:00 Ordered Lactic Acid level (Lactate) Stat Lab 12/14/24 13:15 Ordered Monoscreen Routine Lab 12/14/24 15:28 Ordered Thalassemia & Hemoglobinopathy Routine Lab 12/14/24 15:33 Ordered Tick Panel Stat Lab 12/14/24 15:25 Ordered Troponin(5th) 6 hour. Timed Lab 12/14/24 16:15 Ordered Completed Studies During Hospitalization Category Date Time Status CT chest abdpel w/*[id number] Stat Cat Scan 12/14/24 11:29 Completed XR chest 1V portable [id number] Urgent Exams 12/14/24 09:50 Completed Laboratory Last Values WBC 6.32 10^3/uL (3.29-11.43) 07/01/25 10:15 RBC 1.65 10^6/uL (3.85-5.65) L 12/14/24 10:15 Hgb 6.70 g/dL (11.27-16.99) L 12/14/24 10:15 Hct 18.6 % (37-53) L* 12/14/24 10:15 MCV 112.7 fl (82-101) H 12/14/24 10:15 MCH 40.6 pg (27-33) H 12/14/24 10:15 MCHC 36.0 g/dL (30-55) 12/14/24 10:15 RDW 15.3 % (12.1-15.1) H 12/14/24 10:15 Plt Count 165 10^3/cmm (157-399) 12/14/24 10:15 MPV 10.0 fL (7.4-10.4) 12/14/24 10:15 Neut % (Auto) 72.3 % 12/14/24 10:15 Lymph % (Auto) 20.1 % 12/14/24 10:15 [place] % (Auto) 3.5 % 12/14/24 10:15 Eos % (Auto) 3.2 % 12/14/24 10:15 Baso % (Auto) 0.3 % 12/14/24 10:15 Reticulocyte % (Auto) 2.0 % (0.5-2.0) 12/14/24 10:15 Neut # (Auto) 4.57 10^3/uL (1.8-7.7) 12/14/24 10:15 Lymph # (Auto) 1.3 10^3/uL (0.8-4.8) 12/14/24 10:15 [place] # (Auto) 0.2 10^3/uL (0.2-0.9) 12/14/24 10:15 Eos # (Auto) 0.2 10^3/uL (0.0-0.8) 12/14/24 10:15 Baso # (Auto) 0.0 10^3/uL (0.0-0.1) 12/14/24 10:15 Nucleated RBC % (auto) 0 % 12/14/24 10:15 Nucleated RBCs # 0.0 /100WBC 12/14/24 10:15 Peripher Smr Path Cons Cancelled 12/14/24 10:15 Peripher Smr Path Cons Sent for review 12/14/24 10:15 Haptoglobin 10.0 mg/L (30-200) L 12/14/24 10:15 PT 14.10 SECONDS (12.1-14.9) 12/14/24 10:15 INR 1.02 (0.8-1.2) 12/14/24 10:15 D-Dimer 0.89 ug/mLFEU (0-0.59) H 12/14/24 10:15 Sodium 133 mmol/L (136-145) L 12/14/24 10:15 Potassium 3.7 mmol/L (3.5-5.1) 12/14/24 10:15 Chloride 95 mmol/L (98-107) L 12/14/24 10:15 Carbon Dioxide 25 mmol/L (22-29) 12/14/24 10:15 Anion Gap 16.7 (5-19) 12/14/24 10:15 BUN 7 mg/dL (6-20) 12/14/24 10:15 Creatinine 0.7 mg/dL (0.7-1.2) 12/14/24 10:15 GFR Calculation 128.3 mL/min (90-130) 12/14/24 10:15 Glucose 109 mg/dL (65-115) 12/14/24 10:15 Calculated Osmolality 275 mOsm/kg (285-295) L 12/14/24 10:15 Lactic Acid 2.6 mmol/L (0.5-2.2) H 12/14/24 10:15 Calcium 9.0 mg/dL (8.5-10.5) 12/14/24 10:15 Iron 285 ug/dL (59-158) H 12/14/24 10:15 TIBC 288.90628 mcg/dl 12/14/24 10:15 % Saturation 98.0 % (20-50) H 12/14/24 10:15 Unsat Iron Binding < 4 ug/dL (112-347) L 12/14/24 10:15 Transferrin 244 mg/dL (200-360) 12/14/24 10:15 Ferritin 543 ng/mL (30-400) H 12/14/24 10:15 Total Bilirubin 2.7 mg/dL (0.15-1.2) H 12/14/24 12:07 GGT 56 U/L (8-61) 12/14/24 10:15 AST 40 U/L (0-40) 12/14/24 10:15 ALT 32 U/L (0-41) 12/14/24 10:15 Alkaline Phosphatase 100 U/L (40-130) 12/14/24 10:15 Lactate Dehydrogenase 808 U/L (135-225) H 12/14/24 10:15 Troponin T Baseline 7 ng/L (0-15) 12/14/24 10:15 Troponin T 120 Minute < 6.0 ng/L (0-15) 12/14/24 12:07 Delta Troponin T -1.93246 ABS# (0-10) L 12/14/24 12:07 NT-Pro-B Natriuret Pep 118 pg/mL (0-125) 12/14/24 10:15 Total Protein 6.7 g/dL (6.6-8.7) 12/14/24 10:15 Albumin 3.7 g/dL (3.5-5.2) 12/14/24 10:15 Globulin 3.0 g/dL (1.3-4.6) 12/14/24 10:15 Triglycerides 114 mg/dL (0-150) 12/14/24 10:15 Cholesterol 121 mg/dL (0-200) 12/14/24 10:15 LDL Cholesterol, Calc 77 mg/dL (50-129) 12/14/24 10:15 HDL Cholesterol 21 mg/dL (60-100) L 12/14/24 10:15 LDL/HDL Ratio 3.67 RATIO (0.00-3.22) H 12/14/24 10:15 Cholesterol/HDL Ratio 5.76 mg/dL (1.0-5.00) H 12/14/24 10:15 Lipase 24 U/L (13-60) 12/14/24 10:15 Vitamin B12 562 pg/mL (232-1245) 12/14/24 10:15 Folate 2.0 ng/mL (4.5-32.2) L 12/14/24 10:15 TSH 2.21 uIU/mL (0.27-4.20) 12/14/24 10:15 Urine Color Petroleum (Yellow) A 12/14/24 13:18 Urine Appearance Clear (CLEAR) 12/14/24 13:18 Urine pH 7.5 (5-7) 12/14/24 13:18 Ur Specific [place] 1.026 (1.005-1.030) 12/14/24 13:18 Urine Protein Negative (Negative) 12/14/24 13:18 Urine Glucose (UA) Negative (Normal) 12/14/24 13:18 Urine Ketones Negative (Negative) 12/14/24 13:18 Urine Blood Negative (Negative) 12/14/24 13:18 Urine Nitrate Negative (Negative) 12/14/24 13:18 Urine Bilirubin Negative (Negative) 12/14/24 13:18 Urine Urobilinogen 4.0 mg/dL (Negative) H 12/14/24 13:18 Ur Leukocyte Esterase Negative (Negative) 12/14/24 13:18 Urine RBC 0-2 /hpf (0-2) 12/14/24 13:18 Urine WBC 0-5 /hpf (0-5) 12/14/24 13:18 Ur Squamous Epith Cells 0-5 /hpf (0-5) 12/14/24 13:18 Amorphous Sediment Not Reportable 12/14/24 13:18 Urine Bacteria None seen /hpf (NONE) 12/14/24 13:18 Hyaline Casts 0-4 /lpf H 12/14/24 13:18 Urine Opiates Screen Negative ng/mL (Negative) 12/14/24 13:18 Ur Barbiturates Screen Negative ng/mL (Negative) 12/14/24 13:18 Ur Phencyclidine Scrn Negative ng/mL (Negative) 12/14/24 13:18 Ur Amphetamines Screen Negative ng/mL (Negative) 12/14/24 13:18 U Benzodiazepines Scrn Negative ng/mL (Negative) 12/14/24 13:18 Urine Cocaine Screen Negative ng/mL (Negative) 12/14/24 13:18 U Marijuana (THC) Screen Negative ng/mL (Negative) 12/14/24 13:18 Ethyl Alcohol mg/dL (0-10) 12/14/24 12:07 Blood Type O Negative 12/14/24 11:31 Rho(D) Type Rh negative 12/14/24 11:31 Antibody Screen Negative 12/14/24 11:31 Crossmatch See Detail 12/14/24 11:31 Radiology Impressions Chest X-Ray 12/14/24 09:50 IMPRESSION: No acute findings. Chest/Abdomen/Pelvis CT 12/14/24 11:29 IMPRESSION: 1. No esophageal varices identified. 2. Mild left mediastinal lymphadenopathy. 3. No other acute thoracic findings. 4. Additional details as above. IMPRESSION: 1. Mild chun hepatis, periceliac, and right iliac lymphadenopathy. 2. Mild splenomegaly. 3. No other acute abdominal or pelvic findings. 4. Additional details as above. Recent Clincial Data Last Vital Signs Temp 97.8 F 12/14/24 15:48 Pulse 117 H 12/14/24 16:48 Resp 16 12/14/24 16:48 BP 156/93 12/14/24 16:48 Pulse Ox 97 12/14/24 16:48 O2 Del Method Room Air 12/14/24 16:01 Vital Signs Temp Pulse Resp BP Pulse Ox O2 Del Method 12/14/24 16:48 117 H 16 156/93 97 12/14/24 16:25 117 H 23 H 142/85 97 12/14/24 16:20 108 H 22 H 142/85 97 12/14/24 16:15 117 H 19 H 97 12/14/24 16:10 110 H 21 H 96 12/14/24 16:05 118 H 20 H 98 12/14/24 16:01 98 Room Air 12/14/24 16:00 131 H 16 146/86 96 12/14/24 15:55 116 H 18 146/86 95 12/14/24 15:50 115 H 20 H 146/86 98 12/14/24 15:48 97.8 F 120 H 17 146/86 12/14/24 15:45 120 H 17 112/62 97 12/14/24 15:40 117 H 17 112/62 98 12/14/24 15:35 115 H 19 H 112/62 94 12/14/24 15:33 116 H 12/14/24 15:31 97.7 F 112 H 20 H 112/62 94 12/14/24 15:30 116 H 24 H 117/81 12/14/24 15:25 116 H 19 H 117/81 99 12/14/24 15:20 120 H 17 117/81 99 12/14/24 15:15 117 H 23 H 116/72 98 12/14/24 15:10 116 H 16 116/72 98 12/14/24 15:05 114 H 22 H 116/72 99 12/14/24 15:00 112 H 17 107/72 100 12/14/24 14:55 114 H 17 107/72 100 12/14/24 14:50 114 H 14 107/72 100 12/14/24 14:47 Room Air 12/14/24 14:45 112 H 12 108/58 12/14/24 14:40 118 H 21 H 108/58 98 12/14/24 14:35 113 H 17 108/58 94 12/14/24 14:30 118 H 20 H 115/66 12/14/24 14:25 129 H 17 115/66 98 12/14/24 14:20 126 H 18 115/66 97 12/14/24 14:15 115 H 16 124/76 12/14/24 14:13 124 H 12/14/24 14:10 117 H 15 124/76 100 12/14/24 14:05 119 H 15 124/76 98 12/14/24 14:00 118 H 14 125/71 12/14/24 13:55 115 H 14 125/71 97 12/14/24 13:50 116 H 17 125/71 98 12/14/24 13:45 116 H 19 H 131/75 12/14/24 13:40 119 H 18 98 12/14/24 13:36 99 12/14/24 13:34 115 H 124/66 99 12/14/24 13:19 98.2 F 115 H 18 117/86 12/14/24 13:04 98.1 F 18 124/72 98 12/14/24 12:48 98.1 F 119 H 18 130/64 12/14/24 12:00 124 H 122/72 97 Room Air 12/14/24 11:14 127 H 147/84 98 Room Air 12/14/24 10:20 127 H 17 127/82 100 Room Air 12/14/24 09:57 98.1 F 130 H 20 H 117/76 98 Room Air Intake & Output/Weight 06/2912/13/24 12/14/24 12/15/24 06:59 06:59 06:59 06:59 Intake Total 1350 / 1350 Balance 1350 / 1350 Weight 122.47 kg Vitals Last Vital Signs Temp 97.8 F 12/14/24 15:48 Pulse 117 H 12/14/24 16:48 Resp 16 12/14/24 16:48 BP 156/93 12/14/24 16:48 Pulse Ox 97 12/14/24 16:48 O2 Del Method Room Air 12/14/24 16:01 TS Medications Medications Acetaminophen (Acetaminophen 325 Mg Tablet) 650 mg PO Q6H PRN PRN Reason: Mild/Mod Pain Or Temp >/= 101 Folic Acid (Folic Acid 1 Mg Tablet) 1 mg PO DAILY ZUNILDA Sodium Chloride (Sodium Chloride 0.9%) 1,000 mls @ 50 mls/hr IV .Q20H ZUNILDA Last Admin: 12/14/24 15:14 Dose: 50 mls/hr Folic Acid 1 mg/ Multivitamins 10 ml/ Thiamine HCl 100 mg/Sodium Chloride 1,011.2 mls @ 252.8 mls/hr IV ONCE ONE Stop: 12/14/24 19:16 Last Admin: 12/14/24 15:47 Dose: 252.8 mls/hr Lorazepam (Lorazepam 2 Mg Tablet) 2 mg PO Q4H PRN; Protocol PRN Reason: WITHDRAWAL Lorazepam (Lorazepam 1 Mg/0.5 Ml Injection) 2 mg IM Q4H PRN; Protocol PRN Reason: ALCOHOL WITHDRAWAL Lorazepam (Lorazepam 1 Mg/0.5 Ml Injection) 2 mg IVP PRN PRN; Protocol PRN Reason: WITHDRAWAL Morphine Sulfate (Morphine 4 Mg/Ml Sdv 1 Ml) 2 mg IVP Q4H PRN PRN Reason: SEVERE PAIN Multivitamins Therapeutic (Multivitamin Therapeutic Tablet) 1 tab PO DAILY ZUNILDA Naloxone HCl (Naloxone 0.4 Mg/Ml Sdv) 0.1 mg IVP Q2M PRN PRN Reason: OPIATERV Ondansetron HCl (Ondansetron 2 Mg/Ml Sdv 2 Ml) 4 mg IVP Q8H PRN PRN Reason: vomiting, or N/V if npo Pantoprazole Sodium (Pantoprazole 40 Mg Sdv) 40 mg IVP Q12H ZUNILDA Last Admin: 12/14/24 15:13 Dose: 40 mg Sodium Chloride (Sodium Chloride 0.9% 100 Ml Bag) 50 ml IV PRN PRN PRN Reason: Blood transfusion prime and flush Stop: 12/15/24 11:12 Sucralfate (Sucralfate 1 Gm/10 Ml Oral Liq Udc) 1 gm PO Q6H ZUNILDA Last Admin: 12/14/24 15:13 Dose: 1 gm Thiamine Mononitrate (Thiamine 100 Mg Tablet) 100 mg PO DAILY ZUNILDA Discontinued Medications Sodium Chloride (Sodium Chloride 0.9%) 1,000 mls @ 999 mls/hr IV .Q1H1M ONE Stop: 12/14/24 11:15 Last Infusion: 12/14/24 14:42 Dose: Infused Iohexol (Iohexol 350 Mg/Ml 500 Ml Btl (Per Ml)) 0 ml IV ONCE ONE Stop: 12/14/24 11:44 Last Admin: 12/14/24 11:43 Dose: 100 ml Thiamine HCl (Thiamine 100 Mg/Ml 2ml Sdv) 100 mg IM ONCE ONE Stop: 12/14/24 15:18 Last Admin: 12/14/24 15:46 Dose: 100 mg Allergies No Known Allergies Allergy (Verified 10/12/20 11:25) Home Medications No Known Home Medications 12/14/24 [History Confirmed 12/14/24] Discharge Plan Discharge Patient Disposition: Home Condition: Stable Prescriptions: No Action No Known Home Medications Discharge Orders: Discharge Order (Routine); Ordered 12/15/24 Ordered By: Brendon Santos Patient Instructions: GI Post Discharge Instructions w/ Anesthesia, Opioid Safety, Patient Portal & [place] Instructions Transfer Attestations Time Spent in Transfer Care: greater than 30 min Quality Metrics Clinical Quality Measures [ No reported AMI, CVA or VTE this stay] Coding Level of Care Code 42422 Total time (in minutes) for Discharge: 45 Diagnoses Hyperbilirubinemia E80.6 Acute anemia D64.9 Chronic alcohol abuse F10.10
[2024-12-14 17:41] LABS: Alcohol Level < 10 mg/dL (0-10)
--- NOTE | 2024-12-14 22:50 | ECG_ITS ---
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 Measurements Intervals [place] Rate: 109 P: 65 [place]: 161 QRS: 51 QRSD: 74 T: 42 QT: 334 QTc: 450 Interpretive Statements SINUS TACHYCARDIA NONSPECIFIC T-WAVE ABNORMALITY Compared to ECG 12/14/2024 15:56:23 No significant changes Electronically Signed On 12-16-2024 09:31:20 CDT by Rico Petit M.D. [id number]
[2024-12-15] VITALS (43 sets, daily range): BP systolic 111–157; BP diastolic 72–111; PULSE 88–123; RESP 13–27; TEMP 36.7–37.2; O2SAT 84–98; BMI 36.1
[2024-12-15 00:16] LABS: Reflex FDPQ test REFLEX FDP QUEST TES
[2024-12-15 00:19] LABS: Hematocrit 23.2 % (37-53); Hemoglobin 8.10 g/dL (11.27-16.99)
[2024-12-15 00:32] LABS: INR 1.03 (0.8-1.2); Prothrombin Time 14.20 SECONDS (12.1-14.9)
[2024-12-15 00:33] LABS: Partial Thromboplastin Time 28.6 SECONDS (23.9-36.7)
[2024-12-15 00:35] LABS: Troponin 5 6HR < 6.0 ng/L (0-15)
[2024-12-15 00:36] LABS: Lactic Acid level (Lactate) 1.9 mmol/L (0.5-2.2)
[2024-12-15 00:40] LABS: Fibrinogen 310 mg/dL (174-498)
[2024-12-15 00:44] LABS: Troponin 5 6HR Delta -1 ng/L (0-12)
[2024-12-15 00:55] LABS: HIV 1 & 2 Antigen Non-Reactive (Non-Reactiv)
--- NOTE | 2024-12-15 01:25 | PC.NURSE ---
Chest tightness: Patient complained of chest tightness and some shortness of breath, vital signs were stable with the exception of some tachycardia in the 110s. Patient's CIWA at this time was 15 but he refused ativan and said he just needed a cigarette . An EKG was done and Dr. Fitch was informed. After roughly 30 minutes, patient stated symptoms had mostly resolved.
[2024-12-15 01:31] LABS: Estmated Average Glucose 105; Hemoglobin A1C 5.3 % (4.0-6.0)
[2024-12-15 01:44] LABS: Hepatitis A Antibody IgM Non-Reactive (Nonreactive); Hepatitis B Surface Antigen Non-Reactive (Nonreactive)
[2024-12-15] MEDS: sucralfate 1 gm/10 mL Oral Liq UDC PO ×4 (01:46→21:19)
[2024-12-15] MEDS: pantoprazole 40 mg SDV IVP ×2 (01:47→13:37)
[2024-12-15 03:45] LABS: Hematocrit 21.5 % (37-53); Hemoglobin 7.50 g/dL (11.27-16.99); Mean Corpuscular HGB Conc 34.9 g/dL (30-55); Mean Corpuscular Hemoglobin 35.2 pg (27-33); Mean Corpuscular Volume 100.9 fl (82-101); Nucleated Red Blood Cells % 0 %; Platelet Count 138 10^3/cmm (157-399); Red Blood Count 2.13 10^6/uL (3.85-5.65); White Blood Count 5.99 10^3/uL (3.29-11.43)
[2024-12-15 04:07] LABS: Alanine Aminotransferase 23 U/L (0-41); Albumin Level 3.2 g/dL (3.5-5.2); Alkaline Phosphatase 85 U/L (40-130); Anion Gap 14.1 (5-19); Aspartate Amino Transferase 26 U/L (0-40); Blood Urea Nitrogen 6 mg/dL (6-20); Calcium 8.3 mg/dL (8.5-10.5); Carbon Dioxide 25 mmol/L (22-29); Chloride 102 mmol/L (98-107); Creatinine Clr Calc Pharmacy 199.0583; Globulin 2.7 g/dL (1.3-4.6); Glucose 88 mg/dL (65-115); Osmolality Calculated 281 mOsm/kg (285-295); Potassium 4.1 mmol/L (3.5-5.1); Sodium 137 mmol/L (136-145); Total Protein 5.9 g/dL (6.6-8.7)
[2024-12-15 07:27] LABS: Hematocrit 21.2 % (37-53); Hemoglobin 7.30 g/dL (11.27-16.99)
--- NOTE | 2024-12-15 07:43 | P.PN_ITS ---
Subjective 2 Subjective: Patient admitted with acute anemia. Initially evaluated by myself for possible EGD for GI bleeding. Head and denies abdominal pain no blood in the stool no nausea or vomiting. Vitals/I&O/Wt Last Vital Signs Temp 98.4 F 12/15/24 04:45 Pulse 106 H 12/15/24 05:47 Resp 21 H 12/15/24 04:45 BP 147/101 12/15/24 04:45 Pulse Ox 96 12/15/24 04:45 O2 Del Method Room Air 12/15/24 04:45 12/14/24 12/15/24 12/15/24 22:59 06:59 14:59 Intake Total 2247.033 / 3247.033 294.167 / 3541.200 Output Total 650 / 650 Balance 1597.033 / 2597.033 294.167 / 2891.200 Weight last 48 hrs Weight 266 lb 12.149 oz Weight 270 lb Weight 270 lb Physical Exam 2 GI: OTHER: Benign abdominal exam abdomen soft nontender nondistended. Data 12/15/24 06:56 12/15/24 03:30 Micro: Microbiology 12/15/24 00:00 Blood Culture - Preliminary Blood SPECIMEN COLLECTED 12/14/24 10:15 Blood Culture - Preliminary Blood SPECIMEN COLLECTED A&P Assessment and plan (1) Acute anemia: (2) Hyperbilirubinemia: Plan Patient was initially evaluated by general surgery for possible endoscopic evaluation to rule out GI bleeding. Since then case has been discussed with hematology is a melisa level of care and patient is pending transfer to [facility] for possible bone marrow biopsy. Since we are now thinking that his acute anemia may be caused by primary rheumatologic condition I will defer EGD pending evaluation by hematology. He does deny any abdominal pain or blood in the stool. Please reconsult surgery as needed. Patient currently awaiting transfer to higher level of care and has already been accepted. PDMP PDMP Reviewed: Not Reviewed Attestations 2 Medical Necessity Statement*: Per medical team Coding Level of Care Code Acute Code for Chg Fwd Diagnoses Acute anemia D64.9 Hyperbilirubinemia E80.6
[2024-12-15] MEDS: multivitamin therapeutic Tablet 1 TAB PO (08:40)
[2024-12-15 09:47] LABS: Triglycerides 90 mg/dL (0-150)
[2024-12-15 11:25] LABS: Hematocrit 21.8 % (37-53); Hemoglobin 7.60 g/dL (11.27-16.99)
[2024-12-15 11:26] LABS: Hematocrit 21.5 % (37-53); Retic Production Index 0.81
--- NOTE | 2024-12-15 14:19 | PM.PN ---
Subjective Subjective: - Patient was seen this morning - No acute events overnight - He is frustrated this morning about awaiting a bed at [facility] - He wants me to try [facility] - He is frustrated, he wants to smoke he does not believe that his drinking is that much of a problem, he tells me that he does not drink a lot, and he surprised that it would cause his anemia - Denies any bloody or black stools - No fevers, no chills - I was also able to speak to patient's half-sister, over the phone, while patient was in the room, listening on the conversation, - Discussed with patient and sister, patient's acute anemia, 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 in addition has mediastinal lymphadenopathy, has enlarged lymph nodes in the abdomen, with splenomegaly, certainly there is also concern for possible leukemia - Patient is agreeable to this stay here in the hospital - But he tells me that he might leave AGAINST MEDICAL ADVICE - Discussed morbidity and mortality of leaving AGAINST MEDICAL ADVICE, I would not recommended, he is a high poor outcome, high risk of morbidity or mortality he should wait on transfer, and would recommend to transfer to tertiary level center - Regardless of what happens he tells me he is can to continue to drink and drink continue to smoke as he feels he does not drink that much - I have strongly advised him against this Vitals/I&O/Wt Last Vital Signs Temp 98.4 F 12/15/24 04:45 Pulse 107 H 12/15/24 08:00 Resp 16 12/15/24 08:00 BP 121/78 12/15/24 09:00 Pulse Ox 96 12/15/24 09:00 O2 Del Method Room Air 12/15/24 04:45 12/14/24 12/15/24 12/15/24 22:59 06:59 14:59 Intake Total 2247.033 / 3247.033 294.167 / 3541.200 610 / 610 Output Total 650 / 650 Balance 1597.033 / 2597.033 294.167 / 2891.200 610 / 610 Weight last 48 hrs Weight 121 kg Weight 122.47 kg Weight 122.47 kg Physical Exam Const: COMMON NORMALS: no acute distress and patient oriented x3 Resp: COMMON NORMALS: normal respiratory effort, No retractions, No use of accessory muscles and clear to auscultation bilaterally AUSCULTATION: clear to auscultation bilaterally Cardio: COMMON NORMALS: regular rate, regular rhythm, S1 normal heart sound present and S2 normal heart sound present RATE: regular rate RHYTHM: regular rhythm HEART SOUNDS: S1 normal heart sound present and S2 normal heart sound present GI: COMMON NORMALS: Normal to inspection, nondistended, normoactive bowel sounds present and non-tender Extremity: COMMON NORMALS: no pedal edema Neuro: COMMON NORMALS: patient oriented x3 Psych: COMMON NORMALS: mental status grossly normal Data 12/15/24 11:14 12/15/24 03:30 Micro: Microbiology 12/15/24 00:00 Blood Culture - Preliminary Blood SPECIMEN COLLECTED 12/14/24 10:15 Blood Culture - Preliminary Blood SPECIMEN COLLECTED A&P Assessment and plan (1) Hyperbilirubinemia: (2) Acute anemia: (3) Chronic alcohol abuse: Plan Acute anemia - Concerns for megaloblastic anemia, with folic acid deficiency with alcoholism -Continue folic acid -Advised against alcohol consumption -With evidence of hemolytic anemia, haptoglobin 10, LDH over 800, -With evidence of aplastic anemia reticulocyte count 2 -Recommend transfer to tertiary level center for inpatient oncology evaluation, bone marrow biopsy - CTA abdomen pelvis shows mild left mediastinal lymphadenopathy, mild chun hepatis, periceliac and right iliac lymphadenopathy, mild splenomegaly, with above findings concerning for acute leukemia -Does have hyperbilirubinemia, splenomegaly could be hypersplenism - Creatinine stable at 0.7 - Status post 2 units PRBC hemoglobin 7.6 -Now developing thrombocytopenia platelet count 138 -Bilirubin 2.5 - Gentle IV hydration - Protonix, Carafate - No evidence of iron deficiency, GI bleed EGD canceled - Full code - S CDs for DVT prophylaxis PDMP PDMP Reviewed: Not Reviewed Attestations Medical Necessity Statement*: Patient awaiting a bed at [facility], for acute anemia Diagnoses Hyperbilirubinemia E80.6 Acute anemia D64.9 Chronic alcohol abuse F10.10
--- NOTE | 2024-12-15 15:53 | PC.NURSE ---
HR got to 130s patient reported feeling dizzy and like when he first came to ER, Dr. Barnett ordered stat cbc and 250 ml ns bolus
[2024-12-15 16:21] LABS: Hemoglobin 7.20 g/dL (11.27-16.99); Mean Corpuscular HGB Conc 35.1 g/dL (30-55); Mean Corpuscular Hemoglobin 35.5 pg (27-33); Mean Corpuscular Volume 101.0 fl (82-101); Nucleated Red Blood Cells % 0 %; Platelet Count 152 10^3/cmm (157-399); Red Blood Count 2.03 10^6/uL (3.85-5.65); White Blood Count 6.59 10^3/uL (3.29-11.43)
[2024-12-15 16:31] LABS: Hematocrit 20.5 % (37-53)
--- NOTE | 2024-12-15 16:38 | PC.NURSE ---
Hgb 7.2, reported blurry vision in left eye and dizziness still present. Dr. Santos orderd 1 unit prbc
--- NOTE | 2024-12-15 16:54 | CTR_ITS ---
PROCEDURE INFORMATION: Exam: CT Head Without Contrast Exam date and time: 12/15/2024 5:03 PM Age: 34 years old Clinical indication: Visual disturbance; Additional info: Vision changes TECHNIQUE: Imaging protocol: Computed tomography of the head without contrast. Radiation optimization: All CT scans at this facility use at least one of these dose optimization techniques: automated exposure control; mA and/or kV adjustment per patient size (includes targeted exams where dose is matched to clinical indication); or iterative reconstruction. COMPARISON: No relevant prior studies available. RADIATION DOSE METRICS: Total DLP (mGy-cm): 1188.54 FINDINGS: Brain: Normal. No hemorrhage. Unremarkable white matter. No mass effect. Cerebral ventricles: No ventriculomegaly. Paranasal sinuses: Visualized sinuses are unremarkable. No fluid levels. Mastoid air cells: Visualized mastoid air cells are well aerated. Bones: Unremarkable. No acute fracture. Soft tissues: Unremarkable. CT/CT head wo con* [id number] IMPRESSION: No acute intracranial abnormality.
--- NOTE | 2024-12-15 22:21 | PC.NURSE ---
Patient out of facility with [facility] at 2215, blood running and sent with EMS upon discharge, report called at 2100 to Janeth (Nahid MESA).
[2024-12-16 07:26] LABS: EBV IGG TEST 59.50 U/mL; EBV IGM TEST <36.00 U/mL
[2024-12-22 01:09] LABS: HPLC Confirms; Hematocrit 23.2 % (38.5-50.0); Hemoglobin 7.6 g/dL (13.2-17.1); Hemoglobinopathy Ferritin 314 ng/mL (38-380); Hemoglobinopathy MCH 35.0 pg (27.0-33.0); Hemoglobinopathy MCHC 32.8 g/dL (32.0-36.0); Hemoglobinopathy MCV 106.9 fL (80.0-100.0); Hemoglobinopathy RDW 21.6 % (11.0-15.0)
[2024-12-22 11:25] LABS: Lyme AB IGG, Blot NEGATIVE (NEGATIVE)
[2024-12-22 18:35] LABS: RMSF IGG NOT DETECTED; RMSF IGM NOT DETECTED
== END 2024-12-15 22:15 | disposition short-term general hospital (02) | DRG 810 ==
LOC: ER 12:46 → ICU 13:03
PROVIDERS: Admitting Provider Family Medicine; Emergency Provider Physician Assistant; Visit Provider Family Medicine
DX: D59.9 Acquired hemolytic anemia, unspecified (principal); D61.89 Other specified aplastic anemias and other bone marrow failure syndromes; E80.6 Other disorders of bilirubin metabolism; F10.20 Alcohol dependence, uncomplicated; R59.1 Generalized enlarged lymph nodes; R16.1 Splenomegaly, not elsewhere classified; D69.6 Thrombocytopenia, unspecified; F17.210 Nicotine dependence, cigarettes, uncomplicated; E53.8 Deficiency of other specified B group vitamins
CPT/HCPCS: 36415; 36416; 36430; 70450; 71045; 71260; 74177; 80053; 80061; 80074; 80306; 80307; 80503; 81001; 82247; 82248; 82390; 82525; 82607; 82728; 82746; 82962; 82977; 83010; 83020; 83036; 83540; 83550; 83605; 83615; 83690; 83880; 84238; 84443; 84466; 84478; 84484; 85014; 85018; 85025; 85041; 85045; 85362; 85378; 85384; 85610; 85730; 86308; 86618; 86664; 86665; 86666; 86757; 86850; 86880; 86900; 86920; 87040; 87806; 93005; 94664; 96372; 96376; 99285; 99291; J2470; J3411; J3490; J7030; J7050; J9999; P9016; P9058

== ENCOUNTER 2025-03-30 13:05 | Emergency (ER) | payer MEDICAID, SELFPAY ==
[2025-03-30] VITALS (9 sets, daily range): BP systolic 105–119; BP diastolic 52–91; PULSE 83–119; RESP 18; TEMP 36.7; O2SAT 92–100; BMI 34.7
--- NOTE | 2025-03-30 13:22 | XRR_ITS ---
PROCEDURE INFORMATION: Exam: XR Right Hand Exam date and time: 03/30/2025 1:57 PM Age: 34 years old Clinical indication: Swelling; Hand; Right; Additional info: Pain and swelling TECHNIQUE: Imaging protocol: Radiologic exam of the right hand. Views: 3 or more views. COMPARISON: No relevant prior studies available. FINDINGS: Bones/joints: There are mild degenerative changes of the 2nd and 3rd metacarpophalangeal joints. No acute fracture or dislocation. No cortical destruction or abnormal periosteal reaction. Soft tissues: There is soft tissue swelling of the 2nd digit, greatest proximally. No subcutaneous emphysema. There is a thin radiopaque density measuring 3 mm in length projected over the lateral soft tissues of the mid to distal 3rd digit XR/XR hand RT min 3V* [id number] IMPRESSION: 1. Soft tissue swelling of the proximal 2nd digit without acute osseous abnormality. 2. Degenerative changes of the 2nd and 3rd metacarpophalangeal joints. 3. Thin radiopaque foreign body within the distal soft tissues of the 3rd digit
--- NOTE | 2025-03-30 13:23 | ED_ITS ---
HPI - Extremity Problem 2 General: Chief complaint: Extremity Injury, Upper Stated complaint: R hand pointer finger swollen and painful Time Seen by Provider: 03/30/25 13:17 History of Present Illness: 34-year-[facility] of swelling and pain in his right index finger. Initially began as a nodule it actually made an appointment to see orthopedics it became worse at 1 point it was draining some fluid is not draining now and it started to swell more as some localized redness to able to move the finger but has quite a bit of discomfort. Has not had any fever sweats or chills. Associated symptoms: Deny chest pain or fever(s) Related Data Home Medications ?Medication ?Instructions ?Recorded ?Confirmed imiquimod 5 % topical cream packet 1 applic topical TI D 03/30/25 03/30/25 naproxen sodium 220 mg tablet 660 mg PO Q8H PRN Pain 1 03/30/25 (Aleve) pantoprazole 40 mg tablet,delayed 40 mg PO DAILY 03/3003/30/25 release vits no.133-ferrous 1 tab PO DAILY 03/30/25 1 fumarate 28 mg-folic acid 800 mcg tablet () thiamine HCl (vitamin B1) 100 mg 100 mg PO DAILY 03/3003/30/25 tablet Allergies Allergy/AdvReac Type Severity Reaction Status Date / Time No Known Allergies Allergy Verified 03/30/25 13:15 Review of Systems 2 Const: Denies: fever(s) or chills Card: Denies: chest pain Resp: Denies: dyspnea Musc: Denies: neck pain or back pain PFS ED 2 PFSH: Social History Smoking and tobacco/nicotine status: current every day tobacco/nicotine user cigarettes Packs smoked per day: 1 Years cigarettes smoked: 12 Quit status (tobacco/nicotine): has tried quititng Number of times tried to quit tobacco: 3 Second hand smoke exposure: No Physical Exam 2 Const: COMMON NORMALS: no acute distress GENERAL APPEARANCE: cooperative and comfortable ORIENTATION/CONSCIOUSNESS: Yes awake, Yes oriented to person, Yes oriented to place and Yes oriented to time HENMT: COMMON NORMALS: normocephalic, atraumatic and hearing grossly normal bilaterally HEAD & SCALP: normocephalic and atraumatic Resp: COMMON NORMALS: normal respiratory effort, No retractions, No use of accessory muscles and clear to auscultation bilaterally AUSCULTATION: clear to auscultation bilaterally Cardio: COMMON NORMALS: regular rate, regular rhythm and No murmurs present (Cardio) RATE: regular rate RHYTHM: regular rhythm GI: COMMON NORMALS: Soft to palpation and No hepatosplenomegaly present A USCULTATION: Yes normoactive bowel sounds PALPATION: Yes Soft to palpation, No Tenderness to palpation present (GI), No Guarding due to palpation present (GI) and Yes No hepatosplenomegaly present Extremity: COMMON NORMALS: normal to inspection, capillary refill normal, no clubbing, cyanosis or edema, no calf tenderness and no pedal edema OTHER: Neuro: SENSORIUM/ORIENTATION: Yes oriented to person, Yes oriented to place and Yes oriented to time Skin: COMMON NORMALS: no rashes or lesions noted GENERAL SKIN EXAM: no rashes or lesions noted Procedures Abscess I/D Site: hand (Right second finger) Side (if applicable): right Local Anesthetic: lidocaine 1% Amount of anesthesia used (mL): 2 Technique: incised with #11 blade Amount of fluid expressed (mL): 3 Irrigation: Yes Packing used?: none Course 2 Vital Signs: Vital signs: Vital Signs Temperature 98.0 F 03/30/25 13:10 Pulse Rate 98 03/30/25 18:00 Respiratory Rate 18 03/30/25 18:00 Blood Pressure 118/91 03/30/25 18:00 Pulse Oximetry 99 03/30/25 18:00 Oxygen Delivery Me thod Room Air 03/30/25 18:00 MDM - Extremity (Nontraumatic) Medical Decision Making CT of the hand reviewed with Dr. Ruffin does not involve the flexor or extensor tendons does not involve the joint. Contacted Dr. Barnett who is on-call for hand surgery for [facility]. He reviewed the CT as well we discussed with that he is comfortable with us incising and draining and having the patient follow-up in his clinic. Reviewed the findings with the patient. Incision and drainage done patient had good relief of symptoms he is previously prescribed pain medications and antibiotics by his primary care doctor he has yet to pick those up we will have him use those medications for now. He was given contact information with Dr. Holliday's office he should contact them for a follow-up appointment. Return if he has worsening of symptoms. Wound dressed with topical antibiotic ointment. Medical Records I reviewed the patient's medical records. Lab Data I reviewed the patient's lab results. 03/30/25 13:41 03/30/25 13:41 Radiology Impressions Hand X-Ray 03/30/25 13:22 IMPRESSION: 1. Soft tissue swelling of the proximal 2nd digit without acute osseous abnormality. 2. Degenerative changes of the 2nd and 3rd metacarpophalangeal joints. 3. Thin radiopaque foreign body within the distal soft tissues of the 3rd digit Hand CT 03/30/25 14:16 IMPRESSION: Superficial subcutaneous abscess measuring 0.6 x 1.0 x 1.8 cm along the lateral proximal second phalanx. There is additional subcutaneous edema and cellulitis but no additional abscess. No fracture or osteomyelitis identified. Laboratory Results WBC 8.64 10^3/uL (3.29-11.43) 03/30/25 13:41 RBC 4.37 10^6/uL (3.85-5.65) 03/30/25 13:41 Hgb 13.80 g/dL (11.27-16.99) 03/30/25 13:41 Hct 42.1 % (37-53) 03/30/25 13:41 MCV 96.3 fl (82-101) 03/30/25 13:41 MCH 31.6 pg (27-33) 03/30/25 13:41 MCHC 32.8 g/dL (30-55) 03/30/25 13:41 RDW 12.0 % (12.1-15.1) L 03/30/25 13:41 Plt Count 187 10^3/cmm (157-399) 03/30/25 13:41 MPV 10.9 fL (7.4-10.4) H 03/30/25 13:41 Neut % (Auto) 70.6 % 03/30/25 13:41 Lymph % (Auto) 20.6 % 03/30/25 13:41 Fisher % (Auto) 5.9 % 03/30/25 13:41 Eos % (Auto) 2.2 % 03/30/25 13:41 Baso % (Auto) 0.5 % 03/30/25 13:41 Neut # (Auto) 6.10 10^3/uL (1.8-7.7) 03/30/25 13:41 Lymph # (Auto) 1.8 10^3/uL (0.8-4.8) 03/30/25 13:41 Fisher # (Auto) 0.5 10^3/uL (0.2-0.9) 03/30/25 13:41 Eos # (Auto) 0.2 10^3/uL (0.0-0.8) 03/30/25 13:41 Baso # (Auto) 0.0 10^3/uL (0.0-0.1) 03/30/25 13:41 Nucleated RBC % (auto) 0 % 03/30/25 13:41 Nucleated RBCs # 0.0 /100WBC 03/30/25 13:41 Sodium 138 mmol/L (136-145) 03/30/25 13:41 Potassium 3.8 mmol/L (3.5-5.1) 03/30/25 13:41 Chloride 103 mmol/L (98-107) 03/30/25 13:41 Carbon Dioxide 23 mmol/L (22-29) 03/30/25 13:41 Anion Gap 15.8 (5-19) 03/30/25 13:41 BUN 4 mg/dL (6-20) L 03/30/25 13:41 Creatinine 0.6 mg/dL (0.7-1.2) L 03/30/25 13:41 GFR Calculation 153.3 mL/min (90-130) H 03/30/25 13:41 Glucose 112 mg/dL (65-115) 03/30/25 13:41 Calculated Osmolality 284 mOsm/kg (285-295) L 03/30/25 13:41 Calcium 8.7 mg/dL (8.5-10.5) 03/30/25 13:41 Total Bilirubin 0.8 mg/dL (0.15-1.2) 03/30/25 13:41 AST 79 U/L (0-40) H 03/30/25 13:41 ALT 63 U/L (0-41) H 03/30/25 13:41 Alkaline Phosphatase 128 U/L (40-130) 03/30/25 13:41 C-Reactive Protein 39.7 mg/L (0.0-4.9) H 03/30/25 13:41 Total Protein 6.1 g/dL (6.6-8.7) L 03/30/25 13:41 Albumin 3.1 g/dL (3.5-5.2) L 03/30/25 13:41 Globulin 3.0 g/dL (1.3-4.6) 03/30/25 13:41 All radiology interpretation(s) finalized by discharge Discharge Plan Discharge Patient Disposition: Home Clinical Impression: Abscess of finger of right hand Condition: Stable Prescriptions: No Action thiamine HCl (vitamin B1) 100 mg Tablet 100 mg PO DAILY imiquimod 5 % cream in packet 1 applic TOPICAL TID pantoprazole 40 mg tablet,delayed release (DR/EC) 40 mg PO DAILY naproxen sodium [Aleve] 220 mg Tablet 660 mg PO Q8H PRN (Reason: Pain) 28-800 mg-mcg Tablet 1 tab PO DAILY Discharge Orders: Discharge ED (Routine); Ordered 03/31/25 Ordered By: Alfie Anguiano Discharge Diet: Usual diet Discharge Activity: Increase activity as tolerated Patient Instructions: Opioid Safety, Pain Management, Patient Portal & [place] Instructions Activity Restrictions/Additional Instructions: Thank you for choosing [facility] for your healthcare needs today. It is very important that you follow up as instructed or that you return to the Emergency Department should you have concerns or if your condition changes or worsens in any way. Emergency department visits are focused on emergent conditions, in some cases you may require further evaluation on an outpatient basis. You were seen for an infection in your finger we incised and drained the infection. Recommend that you follow-up with Dr. Barnett at the address and phone number given below. Use the antibiotics and pain medications that you were prescribed earlier. [address] [place],?[id number]? Phone:? (Please note that included in your discharge packet is information concerning opioid safety and pain management. This information is given to all patients were discharged from the ER regardless of their discharge diagnosis or the medicines they usually take or are prescribed.) Print Language: New Zealander Coding Level of Care Code ED Remediation Consultant for Andrew Moreno
--- OUTSIDE RECORDS SUMMARY | 2025-03-30 13:33 | XMS_ITS | Data Portability ---
Author Organization [facility] Address [address] [address] Care Team Providers Care Sign Fabricator Name Role Phone KATIA BECERRA Primary Care Provider [phone] Assessment Encounter Date Assessment Date Assessment LastModified by Organization Details LastModified Time 03/23/2025 03/23/2025 34-year-old male with a history of steatotic liver disease presenting with follow-up on nausea, heartburn, right index finger swelling, and possible HPV infection. Nausea and exacerbated heartburn are concerning with suspected GERD involvement. Right index finger swelling may likely be due to a ganglion cyst, while the expansion of genital warts suggests underlying HPV infection that needs further evaluation. [email or web address] Not available 03/23/2025 17:22:42 Plan of Treatment Reminders Order Date Submit Date Provider Last Modified By Organization Details Last Modified Time Details Appointments NEW P SCOPE CONSULT 2024 03:00P Helga Self, DO Not available Not available Not available Lab hepatic function panel, serum 2024 025 KENY [facility], [address] [place] [address] 248, [address], [place], [address], 03/25/2025 06:30:56 FIDEL (antinucl ear antibodie s) screen, serum 2024 025 [email or web address] 3 [facility], [address] [place] [address] 248, [address], [place], [address], 02/02/2025 07:22:40 iron + TIBC + ferritin, serum 2024 025 [facility], [address] [place] [address] 248, [address], [place], [address], 01/31/2025 16:42:18 CBC 2024 025 [place] [facility], [address], [address], [address], 01/26/2025 17:21:17 periphera l blood smear 2024 025 [email or web address] 3 [facility], [address] [place] [address] 248, [address], [place], [address], 02/02/2025 07:22:40 TSH, serum or plasma [address] [facility], [address] [place] [address] 248, [address], [place], [address], 01/31/2025 16:42:23 CMP, serum or plasma [address] [facility], [address] [place] [address] 248, [address], [place], [address], 01/31/2025 16:42:21 Referral EGD referral 2024 025 [email or web address] Not available 03/24/2025 11:12:52 orthopedi c surgeon referral 2024 025 [email or web address] [facility] DO, [address] [place], [address], 03/29/2025 09:35:18 Procedures None recorded. Surgeries None recorded. Imaging None recorded. Medication Orders pantopraz ole 40 mg tablet,de layed release 2024 025 [facility], [address], [place], [address], 03/23/2025 16:56:48 imiquimod 5 % topical cream packet 2024 [facility], [address], [place], [address], 03/23/2025 17:20:45 prednison e 20 mg tablet 2024 [facility], [address], [place], [address], 03/23/2025 17:43:50 Patient TargetsNo targets recorded. Patient Instructions Encounter Date Encounter Id Patient Instructions Last Modified By Organization Details Last Modified Time 03/23/2025 [id number] - Continue takin g pantoprazole as prescribed. - Apply Imiquimod cream as directed, three times a week before bedtime. - Reduce alcohol consumption and follow dietary recommendations for liver health. - Follow up with orthopedic for the finger issue. - Monitor and report any changes or improvement in symptoms. - Get liver function tests as discussed. - Schedule and attend consultations for EGD or skin assessments. - Contact the office if symptoms worsen or if there are any concerns. [email or web address] Not available 03/23/2025 17:22:43 I discussed with the patient the presentations of GERD symptoms and recommended continued use of pantoprazole with plans for an EGD to further investigate gastrointestinal symptoms. Regarding liver enzyme levels, I emphasized monitoring with follow-up labs, acknowledging improved results possibly due to decreased alcohol consumption. For genital warts, I outlined the use of Imiquimod cream and advised a dermatological review if no notable improvement is observed. The plan also included a referral to orthopedic services to assess the digital swelling, considering a potential ganglion cyst. We discussed lifestyle adjustments for managing fatty liver and reinforced the importance of minimizing alcohol intake, continuing these efforts for improved outcomes. [email or web address] Not available 03/23/2025 17:22:44 Reason for Referral Orthopedic Surgeon Referral for Swelling of finger Referring Physician: Katia Becerra, Family Medicine, Encounter Date: 03/23/2025 EGD Referral for Gastric ref lux Referring Physician: Katia Becerra Family Medicine, Encounter Date: 03/23/2025 Results Created Date Observation Date Name Description Value Unit Range Abnormal Flag Note LastModifiedBy Organization Detail LastModifiedTime 01/27/2001/26/2025 CBC WBC 7.6 x10 4.5-10 .5 Not Available [facility] [address], [place], [address], 01/26/2025 17:21:17 01/27/2001/26/2025 CBC RBC 4.38 x10 4.30-5 .90 Not Available [facility] [address], [place], [address], 01/26/2025 17:21:17 01/27/2001/26/2025 CBC HGB 14.6 g/dL 13.5-1 8.0 Not Available [facility] [address], [place], [address], 01/26/2025 17:21:17 01/27/20 25 01/26/2025 CBC HCT 44.2 % 35.0-6 0.0 Not Available [facility] [address], [place], [address], 01/26/2025 17:21:17 01/27/20 25 01/26/2025 CBC MCV 101.0 fL 80.0-9 9.9 high Not Available [facility] [address], [place], [address], 01/26/2025 17:21:17 01/27/20 25 01/26/2025 CBC MCH 33.2 pg 27.0-3 2.0 high Not Available [facility] [address], [place], [address], 01/26/2025 17:21:17 01/27/20 25 01/26/2025 CBC MCHC 32.9 g/dL 32.0-3 6.0 Not Available [facility] [address] [facility] [address], [place], [address], 01/26/2025 17:21:17 01/27/2001/26/2025 CBC RDW 15.1 % 11.5-1 4.5 high Not Available [facility] [address] [facility] [address], [place], [address], 01/26/2025 17:21:17 01/27/2001/26/2025 CBC plt 178.9 x10 150.0- 451.0 Not Available [facility] [address] [facility] [address], [place], [address], 01/26/2025 17:21:17 01/27/2001/26/2025 CBC lymphocytes % 26.9 % 20.0-5 0.0 Not Available [facility] [address] [facility] [address], [place], [address], 01/26/2025 17:21:17 01/27/2001/26/2025 CBC granulcytes % 63.5 % 30.0-7 0.0 Not Available [facility] [address] [facility] [address], [place], [address], 01/26/2025 17:21:17 01/27/2001/26/2025 CBC monocytes % 6.9 % 2.0-16 .0 Not Available [facility] [address] [facility] [address], [place], [address], 01/26/2025 17:21:17 01/27/2001/26/2025 CBC granulcytes# 4.8 x10 Not Radhika ilable [facility] [address] [facility] [address], [place], [address], 01/26/2025 17:21:17 08/13/20 25 01/26/2025 CBC lymphocytes # 2.1 x10 Not Available [facility] [address] [facility] [address], [place], [address], 01/26/2025 17:21:17 01/27/20 25 01/26/2025 CBC monocytes # 0.5 x10 Not Avai lable [facility] [address] [facility] [address], [place], [address], 01/26/2025 17:21:17 01/27/20 25 01/28/2025 PERIP HERAL BLOOD SMEAR REVIE W peripheral blood smear review Macro cytos is 1 + Revie w of the perip heral smear revea ls adequ ate numbe rs of plate lets. Revie w of perip heral smear confi roseann autom ated resul ts. Not Available [address] [address] [place], [address], 01/28/2025 13:39:38 01/27/20 25 01/31/2025 IRON, TIBC AND STEVE TIN PANEL iron, total 98 mcg/d L 50-180 normal Not Available [address], [address], 01/31/2025 16:42:18 01/27/20 25 01/31/2025 IRON, TIBC AND STEVE TIN PANEL iron binding capacity 263 mcg/d L_(ca lc) 250-42 5 normal Not Available [address], [address], 01/31/2025 16:42:18 01/27/20 25 01/31/2025 IRON, TIBC AND STEVE TIN PANEL % saturation 37 %_(ca lc) 20-48 normal Not Available [address], [address], 01/31/2025 16:42:18 01/27/20 25 01/31/2025 IRON, TIBC AND STEVE TIN PANEL ferritin 1072 NG/mL 38-380 high Not Available [address] [place], [address], 01/31/2025 16:42:18 01/27/2001/31/2025 FIDEL,I FA, CASCA DE AND RHEUM ATOID ARTHR ITIS PANEL 2, WITH REFLE XES FIDEL screen, ifa NEGATI VE negati ve normal FIDEL IFA is a first line scree n for detec ting the prese nce of up to appro ximat maurilio 150 autoa ntibo dies in vario us autoi mmune disea ses. A negat birdie FIDEL IFA resul t sugge sts an FIDEL-a ssoci ated autoi mmune disea se is not prese nt at this time, and does not refle x furth er. If there is high clini niesha suspi cion for Sjogr en's syndr ome, testi ng for anti- SS-A/ Ro antib silvia shoul d be consi dered . Anti- Estella-1 antib silvia shoul d be consi dered for clini sweetie suspe cted infla mmato ry myopa lion . AC-0: Negat birdie Inter natio nal Conse nsus on FIDEL Patte rns (http s://d oi.or g/10. 1515/ ccl- 2017- 0052) For addit ional infor cookie finnegan e refer to http: //bita vásquez.Que stDia gnost ics.c om/fa q/FAQ 177 (This link is being provi ded for infor ilda morales/ educa digna l purpo ses only. ) Not Available [facility] [address] [address] , [place], [address], 01/31/2025 16:42:20 01/27/2001/31/2025 FIDEL,I FA, CASCA DE AND RHEUM ATOID ARTHR ITIS PANEL 2, WITH REFLE XES rheumatoid factor <10 IU/mL <14 normal Not Available [facility] [address] [address] [place], [address], 01/31/2025 16:42:20 01/27/20 25 01/31/2025 FIDEL,I FA, CASCA DE AND RHEUM ATOID ARTHR ITIS PANEL 2, WITH REFLE XES cyclic citrullinate d peptide (ccp) Ab (IgG) <16 units normal Refer ence Range Negat birdie: <20 Weak Posit birdie: 20-39 Moder ate Posit birdie: 40-59 Stron g Posit birdie: >59 Not Available [facility] [address] [address] [place], [address], 01/31/2025 16:42:20 01/27/20 25 01/31/2025 FIDEL,I FA, CASCA DE AND RHEUM ATOID ARTHR ITIS PANEL 2, WITH REFLE XES mutated citrullinate d vimentin (MCV) Ab <20 U/mL <20 Anti- mutat ed citru llina quyen vimen tin antib silvia may be used as a secon d-kushal e marke r of rheum atoid arthr itis, in addit ion to rheum atoid facto r and anti- cycli c citru llina quyen pepti de (CCP) . Not Available [facility] [address] [address] [place], [address], 01/31/2025 16:42:20 01/27/2001/31/2025 HEPAT ITIS PANEL , ACUTE W/REF SILVIA TO CONFI RMATI ON hepatitis A IgM NON-RE ACTIVE non-re active normal For addit ional infor cookie finnegan e refer to http: //[facility] catangie n.que stdia gnost ics.c om/fa q/FAQ (This link is being provi ded for infor ilda nal/ educa digna l purpo ses only. ) Not Available [facility] [address] [place], [address], 01/31/2025 16:42:21 01/27/2001/31/2025 HEPAT ITIS PANEL , ACUTE W/REF SILVIA TO CONFI RMATI ON hepatitis B surface antigen NON-RE ACTIVE non-re active normal For addit ional infor cookie finnegan e refer to http: //[facility] n.que stdia gnost ics.c om/fa q/FAQ 202 (This link is being provi ded for infor matio nal/ educa digna l purpo ses only. ) Not Available [address] [address] [place], [address], 01/31/2025 16:42:21 01/27/2001/31/2025 HEPAT ITIS PANEL , ACUTE W/REF SILVIA TO CONFI RMATI ON hepatitis B core antibody (IgM) NON-RE ACTIVE non-re active normal For addit ional infor ilda vásquez, cookie e refer to http: //[facility] n.que stdia gnost ics.c om/fa q/FAQ 202 (This link is being provi ded for infor matio nal/ educa digna l purpo ses only. ) Not Available [facility] [address], [address], 01/31/2025 16:42:21 01/27/20 25 01/31/2025 HEPAT ITIS PANEL , ACUTE W/REF SILVIA TO CONFI RMATI ON hepatitis C antibody NON-RE ACTIVE non-re active normal HCV antib silvia was non-r eacti ve. There is no labor atory evide nce of HCV infec tion. In most cases , no furth er actio n is requi red. Howev er, if recen t HCV expos ure is suspe cted, a test for HCV RNA (test code 53076 ) is sugge sted. For addit ional infor matio n plejunie e refer to http: //[facility] n.que stdia gnost ics.c om/fa q/FAQ 22v1 (This link is being provi ded for infor matio nal/ educa digna l purpo ses only. ) Not Available [address] [address] [place], [address], 01/31/2025 16:42:21 01/27/20 25 01/31/2025 COMPR EHENS BIRDIE METAB OLIC PANEL glucose 85 mg/dL 65-99 normal Fasti ng refer ence inter alexey Not Available [address], [address], 01/31/2025 16:42:21 01/27/20 25 01/31/2025 COMPR EHENS BIRDIE METAB OLIC PANEL urea nitrogen (BUN) 3 mg/dL 7-25 low Verif ied by repea t anel sis. Not Available [address], [address], 01/31/2025 16:42:21 01/27/20 25 01/31/2025 COMPR EHENS BIRDIE METAB OLIC PANEL creatinine 0.85 mg/dL 0.60-1 .26 normal Verif ied by repea t anel sis. Not Available [address], [address], 01/31/2025 16:42:21 01/27/20 25 01/31/2025 COMPR EHENS BIRDIE METAB OLIC PANEL eGFR 116 mL/mi n/1.7 3m2 > or = 60 normal Not Available [address], [address], 01/31/2025 16:42:21 01/27/20 25 01/31/2025 COMPR EHENS BIRDIE METAB OLIC PANEL BUN/creatini ne ratio 4 (calc ) 6-22 low Not Available [address], [address], 01/31/2025 16:42:21 01/27/20 25 01/31/2025 COMPR EHENS BIRDIE METAB OLIC PANEL sodium 138 mmol/ L 135-14 6 normal Not Available [address], [address], 01/31/2025 16:42:21 01/27/20 25 01/31/2025 COMPR EHENS BIRDIE METAB OLIC PANEL potassium 4.0 mmol/ L 3.5-5. 3 normal Not Available [address], [address], 01/31/2025 16:42:21 01/27/2001/31/2025 COMPR EHENS BIRDIE METAB OLIC PANEL chloride 100 mmol/ L 98-110 normal Not Available [address], [address], 01/31/2025 16:42:21 01/27/20 25 01/31/2025 COMPR EHENS BIRDIE METAB OLIC PANEL carbon dioxide 29 mmol/ L 20-32 normal Not Available [address], [address], 01/31/2025 16:42:21 01/27/20 25 01/31/2025 COMPR EHENS BIRDIE METAB OLIC PANEL calcium 8.9 mg/dL 8.6-10 .3 normal Not Available [address], [address], 01/31/2025 16:42:21 01/27/20 25 01/31/2025 COMPR EHENS BIRDIE METAB OLIC PANEL protein, total 6.3 g/dL 6.1-8. 1 normal Not Available [address], [address], 01/31/2025 16:42:21 01/27/20 25 01/31/2025 COMPR EHENS BIRDIE METAB OLIC PANEL albumin 3.7 g/dL 3.6-5. 1 normal Not Available [address], [address], 01/31/2025 16:42:21 01/27/2001/31/2025 COMPR EHENS BIRDIE METAB OLIC PANEL globulin 2.6 g/dL_ (calc ) 1.9-3. 7 normal Not Available [address], [address], 01/31/2025 16:42:21 01/27/20 25 01/31/2025 COMPR EHENS BIRDIE METAB OLIC PANEL albumin/glob ulin ratio 1.4 (calc ) 1.0-2. 5 normal Not Available [address], [address], 01/31/2025 16:42:21 01/27/20 25 01/31/2025 COMPR EHENS BIRDIE METAB OLIC PANEL bilirubin, total 0.8 mg/dL 0.2-1. 2 normal Not Available [address], [address], 01/31/2025 16:42:21 01/27/20 25 01/31/2025 COMPR EHENS BIRDIE METAB OLIC PANEL alkaline phosphatase 143 U/L 36-130 high Not Available [address], [address], 01/31/2025 16:42:21 01/27/20 25 01/31/2025 COMPR EHENS BIRDIE METAB OLIC PANEL AST 262 U/L 10-40 high Not Available [address], [address], 01/31/2025 16:42:21 01/27/20 25 01/31/2025 COMPR EHENS BIRDIE METAB OLIC PANEL ALT 242 U/L 9-46 high Not Available [address], [address], 01/31/2025 16:42:21 01/27/20 25 01/31/2025 TSH TSH 1.24 mIU/L 0.40-4 .50 normal Not Available [address], [address], 01/31/2025 16:42:23 03/23/20 25 03/25/2025 HEPAT IC FUNCT ION PANEL protein, total 6.8 g/dL 6.1-8. 1 normal Not Available [address], [address], 03/25/2025 06:30:56 03/23/2003/25/2025 HEPAT IC FUNCT ION PANEL albumin 3.8 g/dL 3.6-5. 1 normal Not Available [address], [address], 03/25/2025 06:30:56 03/23/2003/25/2025 HEPAT IC FUNCT ION PANEL globulin 3.0 g/dL_ (calc ) 1.9-3. 7 normal Not Available [address], [address], 03/25/2025 06:30:56 03/23/2003/25/2025 HEPAT IC FUNCT ION PANEL albumin/glob ulin ratio 1.3 (calc ) 1.0-2. 5 normal Not Available [address], [address], 03/25/2025 06:30:56 03/23/2003/25/2025 HEPAT IC FUNCT ION PANEL bilirubin, total 0.9 mg/dL 0.2-1. 2 normal Not Available [address], [address], 03/25/2025 06:30:56 03/23/2003/25/2025 HEPAT IC FUNCT ION PANEL bilirubin, direct 0.2 mg/dL < or = 0.2 normal Not Available [address], [address], 03/25/2025 06:30:56 03/23/2003/25/2025 HEPAT IC FUNCT ION PANEL bilirubin, indirect 0.7 mg/dL _(niesha c) 0.2-1. 2 normal Not Available [address], [address], 03/25/2025 06:30:56 03/23/2003/2503/25/2025 HEPAT IC FUNCT ION PANEL alkaline phosphatase 106 U/L 36-130 normal Not Available [facility] [address] [place], [address], 03/25/2025 06:30:56 03/23/20 25 03/25/2025 HEPAT IC FUNCT ION PANEL AST 125 U/L 10-40 high Not Available [address] [address] [place], [address], 03/25/2025 06:30:56 03/23/20 25 03/25/2025 HEPAT IC FUNCT ION PANEL ALT 92 U/L 9-46 high Not Available [facility] [address] [place], [address], 03/25/2025 06:30:56 02/17/2002/15/2025 US, liver No observ ation record ed. [facility] [address] [place], [address], 02/18/2025 08:03:02 Result Notes None recorded. Problems Name Problem SNOMED Code Status Onset Date Resolution Date Notes Provider Name and Address Organization Details Recorded Time Anemia 663331652 Active Ileana Becerra MD [address] [place] [address], [phone], [facility] Snowden 16:45:56 Fatigue 58715722 Active Ileana Becerra MD [address] [place] [address], [phone], [facility] Magy Snowden 16:46:33 Plaque psoriasis 135367104 Active Ileana Becerra MD [address] [place] [address], [phone], [facility] 16:47:51 Loss of appetite 49653426 Active Ileana Becerra MD [address] [place] [address], [address], [facility] 16:48:27 Contact dermatitis 82772355 Active Ileana Becerra MD [address] [place] [address], [phone], [facility] 16:51:21 Liver enzymes level above reference range 652622844 Active Ileana Becerra MD [address] [place] [address], [address], [facility] 18:02:52 Swelling of finger 193199894 Active 025 Katia Becerra MD [address] [place] [address], [phone], [facility] 17:10:16 Steatotic liver disease 139628092 Active 025 Katia Becerra MD [address] [place] [address], [phone], [facility] 17:16:46 Genital warts 119791227 Active 025 Katia Becerra MD [address] [place] [address], [phone] 5, [facility] 17:17:25 Problem Notes None recorded. Medical Equipment None Reported. Allergies No known drug allergies Medications Name Sig Start Date Stop Date Status Note LastModified by Organization Details LastModified Time prednisone 20 mg tablet TAKE 3 TABLETS BY MOUTH ONCE DAILY FOR 3 DAYS THEN 2 ONCE DAILY FOR 3 DAYS THEN 1 ONCE DAILY FOR 3 DAYS 03/23 completed Not Available Not Available Not Available tramadol 50 mg tablet Take 1 tablet every 6 hours by oral route. 2024 active Not Available Not Available Not Avai lable imiquimod 5 % topical cream packet APPLY TO THE AFFECTED AREA(S) BY TOPICAL ROUTE 3 TIMES PER WEEK 2024 active Not Available Not Available Not Avai lable cephalexin 500 mg capsule Take 1 capsule every 6 hours by oral route. 2024 active Not Available Not Available Not Avai lable pantoprazol e 40 mg tablet,immanuel yed release Take 1 tablet every day by oral route. 2024 active Not Available Not Available Not Avai lable folic acid 1 mg tablet TAKE 1 TABLET BY MOUTH ONCE DAILY active Not Available Not Available No t Available active Not Available Not Avai lable Not Available Vitamin B1 active Not Available Not Av ailable Not Available Vitamin B12 active Not Available Not A vailable Not Available Vitals Date Recorded Body weight Body mass index (BMI) Body height Body temperature Oxygen saturation Oxygen saturation in Arterial blood by Pulse oximetry Heart rate Systolic And Diastolic Provider Name and Address Organization Details Last Updated DateTime 131281. 72 g 36 kg/m2 185.42 cm 97.3 [degF] 97 % 97 % 121 /min 142/92 mm[Hg] Kristina [facility] 16:22:34 Date Recorded Body height Body mass index (BMI) Body weight Oxygen saturation Oxygen saturation in Arterial blood by Pulse oximetry Heart rate Respiratory rate Body temperature Systolic And Diastolic Provider Name and Address Organization Details Last Updated DateTime 185.42 cm 35.9 kg/m2 347284. 12 g 98 % 98 % 122 /min 18 /min 97.2 [degF] 122/80 mm[Hg] Lakshmi [facility] 16:30:20 Social History Question Answer Notes LastModified by Organizat ion Details LastModified Time Tobacco Smoking Status Current Every Day Smoker [facility] 01/26/2025 16:31:36 Which Illicit Or Recreational Drugs Have You Used? Marijuana Information not available 01/26/2025 What Was The Date Of Your Most Recent Tobacco Screening? 01/26/2025 [email or web address] Information not available 01/26/2025 Sex: Unknown Functional Status Question Answer Note LastModified by Organizat ion Details LastModified Time Do you use any illicit or recreational drugs? Yes [email or web address] Information not available 01/26/2025 What is your level of alcohol consumption? Moderate Information not available 01/26/2025 Mental Status None recorded. Family History Nothing Reported Notes:Father - Throat cancer Mother - Ovarian cancer Medical History No medical history recorded. Immunizations Vaccine Type Date Status Note Provider Nam e and Address Organization Details Recorded Time Tdap 05/25/2018 completed Not Available [employer] 03/23/2025 16:24:44 Past Encounters Encounter ID Performer Location Encounter Start Date Encounter Closed Date Diagnosis/Indication Diagnosis SNOMED-CT Code Diagnosis ICD10 Code Diagnosis IMO Codes Diagnosis Note [id number] Katia Becerra MD [facility] ([facility]) [address] [place] [phone] 01/26/2025 16:11:07 02/01/2025 11:37:26 Anemia 053067982 D64.9 04957791 Patient is having unknown anemia. The patient had received blood transfusio n but never received a diagnosis, however they were concerned about leukemia. Will recheck blood counts and do iron studies. Will also blood for pathology review. Fatigue 35424894 R53.83 63914676 Check TSH and other labs as part of his workup. Plaque psoriasis 1897515 09 L40.0 243756 The patient does have plaque psoriasis. His improvemen t with prednisone may suggest some other underlying autoimmune disease. We will check FIDEL and go ahead and do another steroid taper and see if this helps with symptoms. Loss of appetite 4569238 6 R63.0 16090 This may need further evaluation EGD. This will depend on above workup. [id number] Katia Becerra MD [facility] ([facility]) [address] [place] [phone] 02/15/2025 09:28:14 02/16/2025 11:31:56 [id number] Katia Becerra MD [facility] ([facility]) [address] [place] [phone] 03/23/2025 16:24:18 03/23/2025 17:26:27 Gastric reflux 204939898 K21.9 876521 - Continue GERD management with pantoprazo le and plan for EGD. Swelling of finger 648[address] 0006 M79.89 [id number] - Refer to orthopedic consultati on for evaluation and management . Liver enzy mes level above reference range 705809027 R74.8 908487 - Reevaluate liver function tests for normalizat ion. Steatotic liver disease 062670733 K76.0 004982 - Monitor liver function and maintain lifestyle modificati ons. Genital warts [id number] A63.0 73391 - Start Imiquimod 5% cream; consult dermatolog y if no improvemen t. Health Concerns Section Related Observation LastModified by Organization Detai ls LastModified Time None Recorded Concern Status LastModified by Organization Details LastModified Time None Recorded Advance Directives Directive None Recorded Payers Insurance Date Sequence Insurance Name Policy Number Policy Nj Covered Member ID Nj Member ID Guarantor Name 03/28/2025 [facility] (MEDICAID HMO) Nicholas Patrick [id number] Nicholas Patrick 01/26/2025 1 *SELF PAY* [place] Patrick 03/22/2025 1 [facility] (MEDICAID HMO) Nicholas Patrick [id number] Nicholas Patrick 01/26/2025 2 [place] Nicholas Patrick [id number] Nicholas Patrick Notes Date Note Type Note Provider Name and Address Organization Details Recorded Time 01/26/2025 text/html Annual WellnessReported by PatientSocial/Behavior al HistoryFor fracture risk, patient reportshistory of fractures. For physical activity, patient reportsdecreased physical activityandpoor physical condition. For additional lifestyle factors, patient reportstobacco use. For diet and nutrition, patient reportshealthy diet.Mental Status:For depression risk, patient reportsfeels sad, empty, or tearful,loss of interest in activities,sleep disturbances or insomnia,agitated,loss of energy, andhistory of depressionbut reportsno significant changes in weight,no feelings of worthlessness or guilt,no thoughts of suicide, andno history of mood disorders.Functional AbilityFor hearing, patient reportsno loss of hearing. For vision, patient reportsno vision problems. Pt is here to establish care:He recently had an ER visit: was treated with prednisone for 14 days. ER told him to do a follow up to find out why he is not producing RBC's.Symptoms: gagging, acid reflex, fatigue, breathlessness, loses short term memory, muscle cramps nearly every day, loss of appetite. Will eat 3-4 bites and then he feels full. Patient has a history of psoriasis but denies any other known chronic medical issues. Katia Becerra MD [address] [place] [address], [phone], [facility] 01/30/2025 09:06:43 03/23/2025 text/html The patient is a 34-year-old male presenting with follow-up concerns regarding nausea, heartburn, HPV testing, and right index finger swelling. Notably, the patient reports ongoing nausea with daily vomiting episodes exacerbated by heat and activity. Severe heartburn has recently intensified, particularly in the reclined position, with significant discomfort on the right side. A noticeable dietary change was made recently with significant reduction in alcohol consumption, which was initially over standard consumption guidelines. The right index finger has shown a gradual increase in discomfort over the past year, consistent with swelling and suspected cyst formation, without prior trauma. Genital warts have progressively worsened over an 18 month period, with irritation and occasional bleeding in the affected pelvic area. Despite not being formally diagnosed with HPV, the patient suspects infection due to persistent symptoms. Katia Becerra MD [address] [place] [address], [phone], [facility] L.LTj[facility]. 03/23/2025 17:35:14
--- OUTSIDE RECORDS SUMMARY | 2025-03-30 13:33 | XMS_ITS | Continuity of Care Document ---
Author Organization [facility], L.LTjCTj, [facility] ([facility]) Address [address] [place] [address] Care Team Providers Care Novelty Maker Name Role Phone KATIA BECERRA Primary Care Provider Assessment Encounter Date Assessment Date Assessment LastModified [...] available Lab hepatic function panel, serum 2024 [facility] [employer] [facility], [address] [facility] [address] [place], [address], 03/25/2025 06:30:56 Referral EGD referral 2024 025 [email or web address] Not available 03/24/2025 11:12:52 orthopedi c surgeon referral 2024 025 [email or web address] Brian Cunha DO, [address] [place], [address], 03/29/2025 09:35:18 Procedures None recorded. Surgeries None recorded. Imaging None recorded. Medication Orders pantopraz ole 40 mg tablet,de layed release [facility] [address], [place], [address], 03/23/2025 16:56:48 imiquimod 5 % topical cream packet 2024 [facility], [address], [place], [address], 03/23/2025 17:20:45 Patient TargetsNo targets recorded. Patient Instructions Encounter Date Encounter Id Patient Instructions Last Modified By Organization Details Last Modified Time 03/23/2025 [id number] - Continue takin g pantoprazole as prescribed. [...] for Gastric ref lux Referring Physician: Katia Becerra, Family Medicine, Encounter Date: 03/23/2025 Results Created Date Observation Date Name Description Value Unit Range Abnormal Flag Note LastModifiedBy Organization Detail LastModifiedTime 03/23/2003/25/2025 HEPAT IC FUNCT ION PANEL protein, total 6.8 g/dL 6.1-8. 1 normal Not Available [address], [address], 03/25/2025 06:30:56 03/23/2003/25/2025 HEPAT IC FUNCT ION PANEL albumin 3.8 g/dL 3.6-5. 1 normal Not Available [address], [address], 03/25/2025 06:30:56 03/23/20 25 03/25/2025 HEPAT IC FUNCT ION PANEL globulin 3.0 g/dL_ (calc ) 1.9-3. 7 normal Not Available [address], [address], 03/25/2025 06:30:56 03/23/2003/25/2025 HEPAT IC FUNCT ION PANEL albumin/glob ulin ratio 1.3 (calc ) 1.0-2. 5 normal Not Available [address], [address], 03/25/2025 06:30:56 03/23/20 25 03/25/2025 HEPAT IC FUNCT ION PANEL bilirubin, total 0.9 mg/dL 0.2-1. 2 normal Not Available [address], [address], 03/25/2025 06:30:56 03/23/2003/25/2025 HEPAT IC FUNCT ION PANEL bilirubin, direct 0.2 mg/dL < or = 0.2 normal Not Available [address], [address], 03/25/2025 06:30:56 03/23/2003/25/2025 HEPAT IC FUNCT ION PANEL bilirubin, indirect 0.7 mg/dL _(niesha c) 0.2-1. 2 normal Not Available [address] [address] [place], [address], 03/25/2025 06:30:56 03/23/2003/25/2025 HEPAT IC FUNCT ION PANEL alkaline phosphatase 106 U/L 36-130 normal Not Available [facility] [employer] [address] [address] [place], [address], 03/25/2025 06:30:56 03/23/2003/25/2025 HEPAT IC FUNCT ION PANEL AST 125 U/L 10-40 high Not Available [address] [address] [place], [address], 03/25/2025 06:30:56 03/23/2003/25/2025 HEPAT IC FUNCT ION PANEL ALT 92 U/L 9-46 high Not Available [address] [address] [place], [address], 03/25/2025 06:30:56 Result Notes None recorded. Problems Name Problem SNOMED Code Status Onset Date Resolution Date Notes Provider Name and Address Organization Details Recorded Time Anemia 141233861 Active 025 Katia Becerra MD [address] [place] [address], [phone], [facility] 5 16:45:56 Fatigue 95520046 Active 025 Katia Becerra MD [address] [place] [address], [phone], [facility] 5 16:46:33 Plaque psoriasis 317937317 Active 025 Katia Becerra MD [address] [place] [address], [phone], [facility] 5 16:47:51 Loss of appetite 80125577 Active Ileana Becerra MD [address] [place] [address], [address] [place] [address] 5, [facility], L.L.CTj 5 16:48:27 Contact dermatitis 52758482 Active Ileana Becerra MD [address] [place] [address], [address] [place] [address] 5, [facility], KeilyLTjCTj 5 16:51:21 Liver enzymes level above reference range 636659074 Active Ileana Becerra MD [address] [place] [address], [address] [place] [address] 5, [facility], Magy 5 18:02:52 Swelling of finger 507044861 Active Ileana Becerra MD [address] [place] [address], [address], [facility], L.LTjCTj 17:10:16 Steatotic liver disease 220372160 Active Ileana Becerra MD [address] [place] [address], [address], [facility], LTjLTjCTj 17:16:46 Genital warts 616000472 Active Ileana Becerra MD [address] [place] [address], [address], [facility], L.LTjCTj 17:17:25 Problem Notes None recorded. Medical Equipment [...] vailable Not Available Vitals Date Recorded Body height Body mass index (BMI) Body weight Oxygen saturation Oxygen saturation in Arterial blood by Pulse oximetry Heart rate Respiratory rate Body temperature Systolic And Diastolic Provider Name and Address Organization Details Last Updated DateTime 185.42 cm 35.9 kg/m2 609821. 12 g 98 % 98 % 122 /min 18 /min 97.2 [degF] 122/80 mm[Hg] [facility]sh[facility] 16:30:20 Social History Question Answer Notes LastModified by [email or web address] Details LastModified Time Tobacco Smoking Status Current Every Day [facility] 01/26/2025 16:31:36 Which Illicit Or Recreational Drugs Have You Used? Marijuana Information not available 01/26/2025 What Was The Date Of Your Most Recent Tobacco Screening? 01/26/2025 [email or web address] Information not available 01/26/2025 Sex: Unknown Functional Status Question Answer Note LastModified by [email or web address] Details LastModified Time Do you use any illicit or recreational drugs? Yes [email or web address] Information not available 01/26/2025 What is your level of alcohol consumption? Moderate [email or web address] Information not available 01/26/2025 Mental Status None [...] ICD10 Code Diagnosis IMO Codes Diagnosis Note [id number] Katia Becerra MD [facility] ([facility]) [address] [place] [address] 03/23/2025 16:24:18 03/23/2025 17:26:27 Gastric reflux 348093737 K21.9 498804 - Continue GERD management with pantoprazo le and plan for EGD. Swelling of finger 80386 0006 M79.89 53142760 - Refer to orthopedic consultati on for evaluation and management . Liver enzy mes level above reference range 148670439 R74.8 160353 - Reevaluate liver function tests for normalizat ion. Steatotic liver disease 341175456 K76.0 793219 - Monitor liver function and maintain lifestyle modificati ons. Genital warts 236122876 A63.0 26257 - Start Imiquimod 5% cream; consult dermatolog y if no improvemen t. Health Concerns Section Related Observation LastModified by Organization Detai ls LastModified Time None Recorded Concern Status LastModified by Organization Details LastModified Time None Recorded Payers Encounter Date Sequence Insurance Name Policy Number Policy Nj Covered Member ID Nj Member ID Guarantor Name 03/23/2025 1 [facility] (MEDICAID HMO) Nicholas Patrick [id number] Nicholas Patrick Notes Date Note Type Note Provider Name and Address Organization Details Recorded Time 03/23/2025 text/html The patient is a 34-year-old [...] due to persistent symptoms. Katia Becerra MD [address] [place] [address], [phone], [facility], Magy 03/23/2025 17:35:14
[2025-03-30] MEDS: HYDROcodone-acetaminophen 5-325 mg Tablet 1 TAB PO (13:45)
[2025-03-30 14:06] LABS: Hematocrit 42.1 % (37-53); Hemoglobin 13.80 g/dL (11.27-16.99); Mean Corpuscular HGB Conc 32.8 g/dL (30-55); Mean Corpuscular Hemoglobin 31.6 pg (27-33); Mean Corpuscular Volume 96.3 fl (82-101); Nucleated Red Blood Cells % 0 %; Platelet Count 187 10^3/cmm (157-399); Red Blood Count 4.37 10^6/uL (3.85-5.65); White Blood Count 8.64 10^3/uL (3.29-11.43)
--- NOTE | 2025-03-30 14:16 | CT_ITS ---
WS: [id number] CT RIGHT HAND WITH CONTRAST HISTORY: Abscess right index finger Technique: All CT scans at [facility] use at least one of these dose optimization techniques: automated exposure control; mA and/or kV adjustment per patient size (includes targeted exams where dose is matched to clinical indication); or iterative reconstruction. DLP: 134.64 mGy.cm COMPARISON: Radiograph 03/30/2025. Contrast: Omnipaque 350; 100 cc IV. Small fluid collection with partial wall enhancement centered along the lateral second finger at the level of the distal proximal phalanx. This small abscess measures 0.6 x 1.0 x 1.8 cm. There is additional soft tissue edema and skin thickening along the lateral second digit. No additional abscess or focal pockets of fluid identified. No bone destruction or loss of the normal cortex. Bone island in the trapezoid. CT/CT hand RT w con [id number] IMPRESSION: Superficial subcutaneous abscess measuring 0.6 x 1.0 x 1.8 cm along the lateral proximal second phalanx. There is additional subcutaneous edema and cellulitis but no additional abscess. No fracture or osteomyelitis identified.
[2025-03-30 14:26] LABS: Alanine Aminotransferase 63 U/L (0-41); Albumin Level 3.1 g/dL (3.5-5.2); Alkaline Phosphatase 128 U/L (40-130); Aspartate Amino Transferase 79 U/L (0-40); Blood Urea Nitrogen 4 mg/dL (6-20); Calcium 8.7 mg/dL (8.5-10.5); Carbon Dioxide 23 mmol/L (22-29); Chloride 103 mmol/L (98-107); Creatinine Clr Calc Pharmacy 238.9431; Globulin 3.0 g/dL (1.3-4.6); Glucose 112 mg/dL (65-115); Osmolality Calculated 284 mOsm/kg (285-295); Sodium 138 mmol/L (136-145); Total Protein 6.1 g/dL (6.6-8.7)
[2025-03-30 14:27] LABS: Anion Gap 15.8 (5-19); Potassium 3.8 mmol/L (3.5-5.1)
[2025-03-30] MEDS: iohexol 350 mg/mL 500 mL Btl (per mL) IV (14:54)
--- NOTE | 2025-03-30 16:48 | PC.PHAR ---
Patient has a prescription for Tramadol and cephalexin at [facility] that needs picked up .
[2025-03-30] MEDS: piperacillin-tazobactam 3.375 GM in sodium chloride 0.9% (plus) 50 ML IV (17:07)
[2025-03-30] MEDS: bacitracin ointment Pkt 1 EACH TOPICAL (18:00)
== END 2025-03-30 18:10 | disposition home or self-care (01) ==
PROVIDERS: Emergency Provider Family Medicine
DX: L02.511 Cutaneous abscess of right hand (principal); F17.210 Nicotine dependence, cigarettes, uncomplicated
CPT/HCPCS: 26010; 36415; 73130; 73201; 80053; 85025; 86140; 87040; 87070; 87075; 87205; 96374; 96375; 99285; J1885; J2543; J9999

== ENCOUNTER 2025-05-23 21:12 | Inpatient (IN) | payer MEDICAID, SELFPAY ==
[2025-05-23 21:26] VITALS: BP 138/96; PULSE 113; RESP 18; TEMP 36.4; O2SAT 99; BMI 35.1
--- NOTE | 2025-05-23 21:37 | ECG_ITS ---
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 Measurements Intervals [place] Rate: 97 P: 70 KS: 144 QRS: 23 QRSD: 90 T: 57 QT: 369 QTc: 469 Interpretive Statements SINUS RHYTHM Compared to ECG 12/14/2024 22:50:06 Sinus tachycardia no longer present T-wave abnormality no longer present Electronically Signed On 05-26-2025 18:15:00 GEAR KEEPER by Foreign Castorena M.D. [email or web address]
--- NOTE | 2025-05-23 21:41 | ECG_ITS ---
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 Measurements Intervals [place] Rate: 95 P: 66 MT: 157 QRS: 24 QRSD: 85 T: 57 QT: 370 QTc: 467 Interpretive Statements SINUS RHYTHM NONSPECIFIC T-WAVE ABNORMALITY Compared to ECG 12/14/2024 22:50:06 Sinus tachycardia no longer present T-wave abnormality still present Electronically Signed On 05-25-2025 22:41:55 METAL PATTERNMAKER by Chip Salazar M.D. [email or web address]
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
--- OUTSIDE RECORDS SUMMARY | 2025-05-23 21:44 | XMS_ITS | Encounter Summary ---
Author Organization [facility] Address 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
--- OUTSIDE RECORDS SUMMARY | 2025-05-23 21:44 | XMS_ITS | Encounter Summary ---
Author Organization [facility] Address 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
--- NOTE | 2025-05-23 21:54 | W.ED.ABDPA2 ---
HPI - Abdominal Pain General: Chief Complaint: Abdominal Pain Stated Complaint: N/V blood, abd pain Time Seen by Provider: 05/23/25 21:49 History of Present Illness: 35-year-old male with a history of alcohol abuse (he says he has quit drinking), Who presents to the emergency room with nausea and vomiting with upper abdominal pain. This started a few hours ago. Had recent endoscopy. He says he had upper endoscopy recently with Dr. Baptiste. This showed a hiatal hernia and some gastritis. He is having epigastric pain and cannot keep anything down. He says he quit drinking and has not had a drink in about 10 days. He had had about 7 beers in the end of the had some to drink about a week before that. He says he used to drink every day Related Data Home Medications ?Medication ?Instructions ?Recorded ?Confirmed imiquimod 5 % topical cream packet 1 applic topical TID 03/30/25 03/30/25 naproxen sodium 220 mg tablet 660 mg PO Q8H PRN Pain 03/30/25 03/30/25 (Aleve) pantoprazole 40 mg tablet,delayed 40 mg PO DAILY 03/30/25 03/30/25 release vits no.133-ferrous 1 tab PO DAILY 03/30/25 03/30/25 fumarate 28 mg-folic acid 800 mcg tablet () thiamine HCl (vitamin B1) 100 mg 100 mg PO DAILY 03/30/25 03/30/25 tablet Allergies Allergy/AdvReac Type Severity Reaction Status Date / Time No Known Allergies Allergy Verified 03/30/25 13:15 Review of Systems Narrative: Constitutional symptoms: Negative except as documented in HPI. Skin symptoms: Negative except as documented in HPI. Eye symptoms: Negative except as documented in HPI. ENMT symptoms: Negative except as documented in HPI. Respiratory symptoms: Negative except as documented in HPI. Cardiovascular symptoms: Negative except as documented in HPI. Gastrointestinal symptoms: Negative except as documented in HPI. Genitourinary symptoms: Negative except as documented in HPI. Musculoskeletal symptoms: Negative except as documented in HPI. Neurologic symptoms: Negative except as documented in HPI. Psychiatric symptoms: Negative except as documented in HPI. Endocrine symptoms: Negative except as documented in HPI. PFS ED PFSH: Social History Smoking and tobacco/nicotine status: current every day tobacco/nicotine user cigarettes Packs smoked per day: 1 Years cigarettes smoked: 12 Quit status (tobacco/nicotine): has tried quititng Number of times tried to quit tobacco: 3 Second hand smoke exposure: No Physical Exam Narrative: EXAM NARRATIVE: General: Alert, no acute distress. Skin: Warm, dry. Head: Normocephalic, atraumatic. Neck: Supple, trachea midline. Eye: Extraocular movements are intact. Ears, nose, mouth and throat: Dry oral mucosa Cardiovascular: Regular, Normal peripheral perfusion. Respiratory: Lungs are clear to auscultation, respirations are non-labored, breath sounds are equal, Symmetrical chest wall expansion. Gastrointestinal: Soft, moderate epigastric tenderness to palpation, Non distended Musculoskeletal: Normal ROM, no deformity. Neurological: Alert and oriented, No focal neurological deficit observed. Psychiatric: Cooperative, appropriate mood & affect. 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 I reviewed the patient's medical record. Patient has a history of alcohol abuse. Patient did have a fairly recent ultrasound of his liver that showed no stones or sludge in his gallbladder. So this is likely not a gallstone pancreatitis. I reviewed the patient's current home meds No chronic medications Alternate historians: None Differential diagnosis including but not limited to and based on the above HPI, review of systems and physical exam: In this patient with epigastric pain differential would include cholelithiasis or cholecystitis. Hepatitis. Diverticulitis. Constipation. UTI. colitis. small bowel obstruction. Crohn's flare. pancreatitis. gastritis. peptic ulcer. also concern for acute cardiac event. Orders placed to evaluate differential diagnosis based on the above differential, HPI and physical exam Lab Review: Laboratory results were reviewed and interpreted by myself the emergency room physician. Mild leukocytosis. No anemia. No renal failure. Lipase is elevated. At last check with lab it was greater than 8000. His alcohol level is negative today. Lactic acid is mildly elevated at 2.8. CT of the abdomen pelvis: Edema surrounding the pancreas preferentially at the head concerning for pancreatitis. Diverticulosis without diverticulitis. Hepatic steatosis. This was reviewed and interpreted by myself the emergency room physician. I also reviewed the radiology report. Assessment of risk: Level of risk: Mild to moderate risk patient. History of alcohol abuse now with pancreatitis. Unclear if this is related to his alcohol drinking or just an idiopathic pancreatitis. Hospitalization considerations: Patient is being admitted for pancreatitis Reexamination: Patient remained stable. No increased work of breathing. No altered mental status. No focal motor deficits. Consultation: I spoke with Dr. Meza who is on-call for the hospital service who agrees to admission. Assessment and plan: Pancreatitis Dehydration History of alcohol abuse ?IV Toradol, IV fluids, IV Zofran. Also Compazine and Benadryl. Patient declined any narcotics. -I discussed the patient with the hospitalist on-call who is admitting the patient. - Discussed findings and plan with patient. Answered any questions. - All laboratory values were reviewed and interpreted personally by myself, the ER physician - All imaging was reviewed and interpreted personally by myself, the ER physician. - Evaluation and treatment of this problem were appropriate in the emergency setting Lab Data 05/23/25 22:00 05/23/25 22:00 Labs/Radiology: Radiology Impressions Abdomen/Pelvis CT 05/23/25 22:45 IMPRESSION: 1. Edema surrounding the pancreas, preferentially located at the head of the pancreas, concerning for mild pancreatitis. 2. Diverticulosis, without acute diverticulitis. No small bowel obstruction. No free air. 3. Hepatic steatosis. Laboratory Results WBC 14.42 10^3/uL (3.29-11.43) H 05/23/25 22:00 RBC 5.06 10^6/uL (3.85-5.65) 05/23/25 22:00 Hgb 16.10 g/dL (11.27-16.99) 05/23/25 22:00 Hct 47.7 % (37-53) 05/23/25 22:00 MCV 94.3 fl (82-101) 05/23/25 22:00 MCH 31.8 pg (27-33) 05/23/25 22:00 MCHC 33.8 g/dL (30-55) 05/23/25 22:00 RDW 12.1 % (12.1-15.1) 05/23/25 22:00 Plt Count 241 10^3/cmm (157-399) 05/23/25 22:00 MPV 10.5 fL (7.4-10.4) H 05/23/25 22:00 Neut % (Auto) 82.0 % 05/23/25 22:00 Lymph % (Auto) 11.6 % 05/23/25 22:00 [place] % (Auto) 5.1 % 05/23/25 22:00 Eos % (Auto) 0.7 % 05/23/25 22:00 Baso % (Auto) 0.4 % 05/23/25 22:00 Neut # (Auto) 11.82 10^3/uL (1.8-7.7) H 05/23/25 22:00 Lymph # (Auto) 1.7 10^3/uL (0.8-4.8) 05/23/25 22:00 [place] # (Auto) 0.7 10^3/uL (0.2-0.9) 05/23/25 22:00 Eos # (Auto) 0.1 10^3/uL (0.0-0.8) 05/23/25 22:00 Baso # (Auto) 0.1 10^3/uL (0.0-0.1) 05/23/25 22:00 Nucleated RBC % (auto) 0 % 05/23/25 22:00 Nucleated RBCs # 0.0 /100WBC 05/23/25 22:00 PT 12.60 SECONDS (12.1-14.9) 05/23/25 22:00 INR 0.88 (0.8-1.2) 05/23/25 22:00 APTT 26.5 SECONDS (23.9-36.7) 05/23/25 22:00 Sodium 140 mmol/L (136-145) 05/23/25 22:00 Potassium 3.6 mmol/L (3.5-5.1) 05/23/25 22:00 Chloride 101 mmol/L (98-107) 05/23/25 22:00 Carbon Dioxide 22 mmol/L (22-29) 05/23/25 22:00 Anion Gap 20.6 (5-19) H 05/23/25 22:00 BUN 2 mg/dL (6-20) L 05/23/25 22:00 Creatinine 0.7 mg/dL (0.7-1.2) 05/23/25 22:00 GFR Calculation 127.6 mL/min (90-130) 05/23/25 22:00 Glucose 116 mg/dL (65-115) H 05/23/25 22:00 Calculated Osmolality 287 mOsm/kg (285-295) 05/23/25 22:00 Lactic Acid 2.8 mmol/L (0.5-2.2) H 05/23/25 22:00 Calcium 9.2 mg/dL (8.5-10.5) 05/23/25 22:00 Total Bilirubin 2.6 mg/dL (0.15-1.2) H 05/23/25 22:00 AST 158 U/L (0-40) H 05/23/25 22:00 ALT 91 U/L (0-41) H 05/23/25 22:00 Alkaline Phosphatase 167 U/L (40-130) H 05/23/25 22:00 Ammonia 43 umol/L (16-60) 05/23/25 22:00 Total Protein 7.7 g/dL (6.6-8.7) 05/23/25 22:00 Albumin 3.6 g/dL (3.5-5.2) 05/23/25 22:00 Globulin 4.1 g/dL (1.3-4.6) 05/23/25 22:00 Lipase 9780 U/L (13-60) H 05/23/25 22:00 Ethyl Alcohol < 10 mg/dL (0-10) 05/23/25 22:00 All radiology interpretation(s) finalized by discharge Discharge Plan Discharge Patient Disposition: Admitted As Inpatient Clinical Impression: Pancreatitis, Dehydration Condition: Stable Coding Level of Care Code ED News Videotape Editor for Andrew Moreno
[2025-05-23] MEDS: ondansetron 2 mg/ML SDV 2 mL 8 MG IVP (22:00)
[2025-05-23] MEDS: pantoprazole 40 mg SDV 80 MG IVP (22:00)
[2025-05-23 22:03] VITALS: BP 128/94; PULSE 97; RESP 15; O2SAT 99
[2025-05-23 22:12] LABS: Hematocrit 47.7 % (37-53); Hemoglobin 16.10 g/dL (11.27-16.99); Mean Corpuscular HGB Conc 33.8 g/dL (30-55); Mean Corpuscular Hemoglobin 31.8 pg (27-33); Mean Corpuscular Volume 94.3 fl (82-101); Nucleated Red Blood Cells % 0 %; Platelet Count 241 10^3/cmm (157-399); Red Blood Count 5.06 10^6/uL (3.85-5.65); White Blood Count 14.42 10^3/uL (3.29-11.43)
[2025-05-23 22:30] VITALS: BP 138/86; PULSE 106; O2SAT 92
[2025-05-23 22:34] LABS: Lactic Sepsis W/Reflex 2.8 mmol/L (0.5-2.2)
[2025-05-23 22:39] LABS: Alanine Aminotransferase 91 U/L (0-41); Albumin Level 3.6 g/dL (3.5-5.2); Alkaline Phosphatase 167 U/L (40-130); Anion Gap 20.6 (5-19); Aspartate Amino Transferase 158 U/L (0-40); Blood Urea Nitrogen 2 mg/dL (6-20); Calcium 9.2 mg/dL (8.5-10.5); Carbon Dioxide 22 mmol/L (22-29); Chloride 101 mmol/L (98-107); Globulin 4.1 g/dL (1.3-4.6); Glucose 116 mg/dL (65-115); Osmolality Calculated 287 mOsm/kg (285-295); Potassium 3.6 mmol/L (3.5-5.1); Sodium 140 mmol/L (136-145); Total Protein 7.7 g/dL (6.6-8.7)
[2025-05-23 22:41] LABS: Alcohol Level < 10 mg/dL (0-10)
[2025-05-23 22:43] LABS: INR 0.88 (0.8-1.2); Prothrombin Time 12.60 SECONDS (12.1-14.9)
[2025-05-23 22:44] LABS: Partial Thromboplastin Time 26.5 SECONDS (23.9-36.7)
--- NOTE | 2025-05-23 22:45 | CTR_ITS ---
PROCEDURE INFORMATION: Exam: CT Abdomen And Pelvis With Contrast Exam date and time: 05/23/2025 10:57 PM Age: 35 years old Clinical indication: Abdominal pain TECHNIQUE: Imaging protocol: Computed tomography of the abdomen and pelvis with contrast. Radiation optimization: All CT scans at this facility use at least one of these dose optimization techniques: automated exposure control; mA and/or kV adjustment per patient size (includes targeted exams where dose is matched to clinical indication); or iterative reconstruction. Contrast material: OMNI 350; Contrast volume: 100 ml; Contrast route: INTRAVENOUS (IV); COMPARISON: [place] liver [id number] 02/15/2025 8:38 AM RADIATION DOSE METRICS: Total DLP (mGy-cm): 1147.23 FINDINGS: Liver: Hepatic steatosis. Gallbladder and biliary ducts: Normal. No calcified stones. No ductal dilation. Pancreas: Edema surrounding the pancreas, preferentially located at the head of the pancreas, concerning for mild pancreatitis. Spleen: Splenomegaly, measuring up to 17.3 cm. Adrenal glands: Normal. No mass. Kidneys and ureters: Normal. No hydronephrosis. Stomach and bowel: Diverticulosis, without acute diverticulitis. No small bowel obstruction. No free air. Appendix: No evidence of appendicitis. Intraperitoneal space: See Stomach and bowel finding. Vasculature: Unremarkable. No abdominal aortic aneurysm. Lymph nodes: Unremarkable. No enlarged lymph nodes. Urinary bladder: Unremarkable as visualized. Reproductive: Unremarkable as visualized. Bones/joints: Right hip ORIF. Soft tissues: Unremarkable. Other findings: No pseudocyst. CT/CT abdomen pelvis w con* [id number] IMPRESSION: 1. Edema surrounding the pancreas, preferentially located at the head of the pancreas, concerning for mild pancreatitis. 2. Diverticulosis, without acute diverticulitis. No small bowel obstruction. No free air. 3. Hepatic steatosis.
[2025-05-23 22:50] LABS: Ammonia 43 umol/L (16-60)
[2025-05-23] MEDS: iohexol 350 mg/mL 500 mL Btl (per mL) IV (23:01)
[2025-05-23] MEDS: diphenhydrAMINE 50 mg/mL SDV 1mL IVP (23:40)
[2025-05-23 23:45] VITALS: BP 140/77; PULSE 116; RESP 16; O2SAT 98
--- NOTE | 2025-05-23 23:47 | PC.NURSE ---
PT REFUSED DILAUDID DUE TO NOT LIKING HOW IT MAKES IT FEEL - PT REQUESTED TYLENOL OR IBUPROFEN INSTEAD. NOTIFIED.
[2025-05-23 23:55] LABS: Reflex Lactate Order REFLEX LACTIC ORDERD
[2025-05-24] VITALS (10 sets, daily range): BP systolic 93–144; BP diastolic 53–89; PULSE 76–98; RESP 16–18; TEMP 36.6–37.1; O2SAT 95–98
[2025-05-24 00:14] LABS: Lipase 9780 U/L (13-60)
[2025-05-24 01:08] LABS: Magnesium 1.7 mg/dL (1.7-2.3)
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
[2025-05-24 01:55] LABS: Lactic Acid level (Lactate) 1.5 mmol/L (0.5-2.2)
[2025-05-24] MEDS: cefTRIAXone 1,000 mg SDV 1000 MG IVP (02:23)
[2025-05-24 09:30] LABS: Glucose Urine UA Negative (Normal); Nitrate Urine Negative (Negative)
[2025-05-24 09:34] LABS: Add Urine Microscopic? YES
[2025-05-24 09:37] LABS: PCP Screen Urine Negative (Negative)
[2025-05-24 10:04] LABS: Specific Gravity, Urine 1.068 (1.005-1.030)
--- NOTE | 2025-05-24 10:39 | PC.CHAP ---
Pastoral Care Encounter/Spiritual Assessment Type of Contact [] Declined thai masseur visit [] Patient/Family/Request visit [] Outpatient visit [] Follow-up visit [] Physician referral [] Code/Alert [x] Routine visit [] Staff referral [] Actively dying [] Patient sleeping [] Family support [] [] Out of room [] Palliative care [] [] Receiving care in room [] Pre-surgical visit [] Trauma [] Long length of stay [] ICU visit [] Other: Relational/Emotional Strength [x] Patient feels connected with others/family/visitors/staff [] Distress [] Loneliness/isolation [] Abandonment Spirituality of Patient [x] Person of Yadi [] Attends Quaker of their Yadi [x] Believes in Prayer [] Reads Bible or Jewish materials [] There are Spiritual issues to be addressed Conditioning Room Worker Interventions [x] Prayer [x] Active listening [x] Non-anxious presence [x] Spiritual/emotional support [] Crisis/trauma care [] Spiritual counseling [] Bereavement support [] Provided bereavement packet [] Provided Bible/devotional materials [] Provided toy/stuffed animal, coloring book to patient or family member [] Provided Communion [] Anointing/[place] [] Salvation [x] Completed spiritual assessment [] Other: Impact on Illness or Injury [] Angry [] Fearful [] Anxious [] Often cries [] Exhaustion [] Unable to work [] Unable to attend hoahaoism [] Unable to walk/stand [] Unable to read [] Unable to drive [] Unable to eat/drink [] Unable to sleep [] Unable to be with family [] Patient intubated [] Other: Summary Time spent with patient 5 min
[2025-05-24 12:34] LABS: Lipase 367 U/L (13-60)
[2025-05-25] VITALS (7 sets, daily range): BP systolic 104–143; BP diastolic 68–85; PULSE 88–102; RESP 16–18; TEMP 36.5–36.8; O2SAT 93–95
[2025-05-25] MEDS: cefTRIAXone 1,000 mg SDV 1000 MG IVP (04:13)
[2025-05-25] MEDS: PRENATAL VIT NO.130/IRON/FOLIC 1 EACH TABLET PO (04:14)
[2025-05-25 05:24] LABS: Hematocrit 36.4 % (37-53); Hemoglobin 12.20 g/dL (11.27-16.99); Mean Corpuscular HGB Conc 33.5 g/dL (30-55); Mean Corpuscular Hemoglobin 31.9 pg (27-33); Mean Corpuscular Volume 95.3 fl (82-101); Nucleated Red Blood Cells % 0 %; Platelet Count 159 10^3/cmm (157-399); Red Blood Count 3.82 10^6/uL (3.85-5.65); White Blood Count 6.39 10^3/uL (3.29-11.43)
[2025-05-25 05:41] LABS: Lipase 100 U/L (13-60)
[2025-05-25 05:48] LABS: Alanine Aminotransferase 47 U/L (0-41); Albumin Level 2.9 g/dL (3.5-5.2); Alkaline Phosphatase 112 U/L (40-130); Anion Gap 12.7 (5-19); Aspartate Amino Transferase 59 U/L (0-40); Blood Urea Nitrogen 3 mg/dL (6-20); Calcium 8.3 mg/dL (8.5-10.5); Carbon Dioxide 26 mmol/L (22-29); Chloride 105 mmol/L (98-107); Globulin 2.9 g/dL (1.3-4.6); Glucose 86 mg/dL (65-115); Osmolality Calculated 286 mOsm/kg (285-295); Potassium 3.7 mmol/L (3.5-5.1); Sodium 140 mmol/L (136-145); Total Protein 5.8 g/dL (6.6-8.7)
--- NOTE | 2025-05-25 11:30 | P.PN_ITS ---
Subjective 2 Subjective: Patient is a very pleasant 35-year-old male seen and examined at bedside on hospital rounds today. Patient laying in bed with continued upper abdominal pain, worse with movement. Patient was able to tolerate clear liquid diet we will advance his diet as tolerated. In review of labs, stable WBC 6.39, elevated lipase much improved 100, improving AST 59, ALT 47, ALK base WNL 112. Patient's vital signs are stable, mildly elevated heart rate 102 we will continue to closely monitor this. If patient is able to tolerate diet and good intake of fluids, will work towards discharging him in the next 24 hours. Vitals/I&O/Wt Last Vital Signs Temp 98.0 F 05/25/25 11:00 Pulse 102 H 05/25/25 11:00 Resp 18 05/25/25 11:00 BP 143/71 05/25/25 11:00 Pulse Ox 94 05/25/25 11:00 O2 Del Method Room Air 05/25/25 11:00 05/24/25 05/25/25 05/25/25 22:59 06:59 14:59 Intake Total 1240 / 1960 1480 / 1480 Output Total 200 / 1050 Balance 1040 / 910 1480 / 1480 Weight last 48 hrs Weight 119.748 kg Weight 118.841 kg Weight 118.87 kg Weight 122.47 kg Physical Exam 2 Narrative: General well-developed obese male in no acute cardiopulmonary stress Oral pharynx very poor dentition with broken teeth Mallampati 2 CV regular rate and rhythm Lungs clear to auscultation bilaterally Abdomen positive bowel tones soft with mild epigastric tenderness Calves no tenderness no dependent edema Mentation alert and oriented x 3 Skin warm and dry Data 05/25/25 04:58 05/25/25 04:58 Micro: Microbiology 05/23/25 22:00 Blood Culture - Preliminary Blood NEGATIVE TO DATE 05/23/25 22:00 Blood Culture - Preliminary Blood NEGATIVE TO DATE A&P Assessment and plan 1. Pancreatitis: Patient with pancreatitis attributable to alcoholism. He does not use GLP-1's. Does have fatty liver but his liver enzymes are higher than previous. Notably he had ultrasound of the liver 3 months ago and did not have gallstones. If his liver enzymes do not settle and trend downwards would proceed with repeat ultrasound 2. Dehydration: 2 L of saline given will put him on saline with 20 mg potassium chloride per liter at 150 cc an hour. 3. Chronic alcohol abuse: Patient was counseled that he has done a good job cutting back on his alcohol but he needs to stop completely because of the pancreatitis. Counseled him that pancreatitis results and enzymes escaping through the pancreatic organ damaging it further and causing pancreatitis to occur more frequently and easier. Eventually he has to stop alcohol completely so he should stop completely now 4. Elevated LFTs: As above known fatty liver and known alcoholism though patient reports decreased alcohol intake Plan: Acute pancreatitis - Admitting WBC 14.42--<6.39 - Continue IV rocephin 1gm q 24hr - Lipase 9780--< 367--< 100 - Continue IV fluid hydration with LR fluids - Advance diet as tolerated from clear liquids to soft bland Dehydration - Continue IV fluid hydration with LR fluids Chronic alcohol abuse - Complete and total cessation is advised Elevated LFTs Fatty liver - Improving LFTs with hydration - Admitting AST 158, ALT 91, alk phos 160 7 repeat AST 59, ALT 47, alk phos 112 Obesity - BMI 34.4 - Lifestyle modifications and weight loss advised DVT PPX: SCD's GI PPX: PPI Code Status: Full code PDMP PDMP Reviewed: Not Reviewed Attestations 2 Medical Necessity Statement*: Patient admitted to the hospital inpatient and will require greater than 2 midnights with acute pancreatitis, IV pain control, IV fluid hydration, and complex medical management. Coding Level of Care Code 13603 Diagnoses Pancreatitis K85.90 Dehydration E86.0 Chronic alcohol abuse F10.10 Elevated LFTs R79.89
[2025-05-26 04:00] VITALS: BP 128/57; PULSE 90; RESP 16; TEMP 36.7; O2SAT 95
[2025-05-26] MEDS: PRENATAL VIT NO.130/IRON/FOLIC 1 EACH TABLET PO (04:53)
[2025-05-26] MEDS: cefTRIAXone 1,000 mg SDV 1000 MG IVP (04:53)
[2025-05-26 06:41] LABS: Alanine Aminotransferase 47 U/L (0-41); Albumin Level 2.8 g/dL (3.5-5.2); Alkaline Phosphatase 112 U/L (40-130); Anion Gap 13.6 (5-19); Aspartate Amino Transferase 69 U/L (0-40); Blood Urea Nitrogen 2 mg/dL (6-20); Calcium 8.3 mg/dL (8.5-10.5); Carbon Dioxide 26 mmol/L (22-29); Chloride 106 mmol/L (98-107); Globulin 3.1 g/dL (1.3-4.6); Glucose 80 mg/dL (65-115); Osmolality Calculated 289 mOsm/kg (285-295); Potassium 3.6 mmol/L (3.5-5.1); Sodium 142 mmol/L (136-145); Total Protein 5.9 g/dL (6.6-8.7)
[2025-05-26 07:56] VITALS: BP 120/80; PULSE 93; RESP 17; TEMP 36.7; O2SAT 95
[2025-05-26 08:42] LABS: Lipase 195 U/L (13-60)
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
[2025-05-26 10:26] VITALS: BP 120/80; PULSE 93; RESP 17; TEMP 36.7; O2SAT 95
== END 2025-05-26 10:27 | disposition home or self-care (01) | DRG 282 ==
LOC: ER 23:57 → MEDSURG 05-24 01:04
PROVIDERS: Physician Assistant; Admitting Provider Internal Medicine; Emergency Provider Emergency Medicine; PCP Family Medicine; Visit Provider Registered Nurse
DX: K85.90 Acute pancreatitis without necrosis or infection, unspecified (principal); E86.0 Dehydration; F10.10 Alcohol abuse, uncomplicated; K76.0 Fatty (change of) liver, not elsewhere classified; E66.9 Obesity, unspecified; Z68.34 Body mass index [BMI] 34.0-34.9, adult; F17.210 Nicotine dependence, cigarettes, uncomplicated
CPT/HCPCS: 36415; 74177; 80053; 80306; 80307; 81001; 82140; 82274; 83605; 83690; 83735; 84100; 85025; 85610; 85730; 87040; 93005; 96372; 96374; 96375; 99285; J0696; J0780; J1200; J1650; J1885; J2405; J2470; J7030; J7120; J9999